=== PATIENT | female | born 1970 | race African-American/Black ===

== ENCOUNTER 2016-08-20 09:00 | Emergency (ER) | payer OTHER ==
[~2016-08-20] VITALS: Ht 172.7 cm; Wt 108.9 kg
[~2016-08-20 09:00] MED LIST: ADVAIR 250-501 EACH INH; ALBUTEROL SULF8.5 GM INH; ALBUTEROL2.5 MG/3 M HHN; ATIVAN1 MG ORAL; ATROVENT15 M1 NASAL; ATROVENT30 ML NASAL; AZITHROMYCIN250 MG ORAL; AZITHROMYCIN250 MG PO; CYCLOBENZAPRINE10 MG ORAL; DULERA 100 MCG/13 GM INH; IBUPROFEN600 MG ORAL; IPRATROPIU0.2 MG/1 M HHN; LEVAQUIN500 MG ORAL; LEVAQUIN500 MG PO; LIPITOR10 MG ORAL; LISINOPRIL20 MG ORAL; MECLIZINE HCL25 MG ORAL; MEDROL DOSEPAK4 MG ORAL; NORCO 5-325 TA1 EACH ORAL; NORCO 5-325 TA1 EACH PO; NORVASC5 MG ORAL; PREDNISONE20 MG ORAL; PREDNISONE20 MG PO; PREDNISONE50 MG ORAL; PROAIR HFA8.5 GM INH; PROTONIX40 MG ORAL; PULMICORT0.5 MG/2 M IH; SINGULAIR10 MG ORAL; SPIRIVA18 MCG INH; TENORMIN25 MG ORAL; TENORMIN50 MG PO; VERAPAMIL HCL80 MG ORAL; VICODIN 5-5001 EACH PO; XANAX0.5 MG PO; XOPENEX0.63 MG/3 HHN; ZESTRIL20 MG PO
[2016-08-20] MEDS ORDERED: DULERA 200 MCG/13 GM IH (09:08)
--- NOTE | 2016-08-20 09:26 | Emergency Room Report ---
History of Present Illness General Chief Complaint: Lower Extremity Injury Source: Patient Present Illness HPI Patient presents with complaints of pain to the left foot Dorsally She states that she had fractured that foot long time ago but that was along the medial aspect of the foot Pain is worse with ambulate in Denies any ankle pain Denies any fevers or chills Denies any redness Pain is 5/10 localized to the mid dorsal foot Allergies: Coded Allergies: No Known Allergies (Verified , 08/28/07) Patient History Past Medical History: see triage record Pertinent Family History: none Last Menstrual Period: none Now: No Reviewed Nursing Documentation: PMH: Agreed, PSxH: Agreed Nursing Documentation-PMH Hx Hypertension: Yes Hx Asthma: Yes Hx COPD: Yes Hx Diabetes: No Hx Cancer: No Hx Gastrointestinal Problems: No Hx Dialysis: No Hx Neurological Problems: No Hx Cerebrovascular Accident: No Hx Seizures: No Hx Vertigo: Yes Review of Systems All Other Systems: negative except mentioned in HPI Physical Exam Vital Signs Date Time Temp Pulse Resp B/P Pulse Ox O2 Delivery O2 Flow Rate FiO2 08/20/16 09:02 98.4 99 18 121/84 96 Room Air Sp02 EP Interpretation: reviewed, normal General Appearance: well appearing, no apparent distress Head: normocephalic, atraumatic Eyes: bilateral eye EOMI, bilateral eye PERRL ENT: normal pharynx Musculoskeletal: other - Mild discomfort palpated the mid dorsal foot, neurovascularly intact, ankle is nontender Neurologic: alert, oriented x3, responsive, motor strength/tone normal Skin: no rash, warm/dry Lymphatic: no adenopathy Medical Decision Making Diagnostic Impression: Primary Impression: Foot pain, left ER Course Patient imaging reveals chronic findings in the dorsal mid aspect of the foot No obvious acute pathology is noted Could potentially given the patient's discomfort as it does correlate clinically as well Patient was given anti-inflammatory will rest and elevate the area and have close outpatient followup Other X-Ray Diagnostic Results Other X-Ray Diagnostic Results : EP Interpretation: Yes Findings: no fractures, no dislocation, no soft tissue swelling, other - Evidence of chronic pathology at the mid third metatarsal Number of Views: 3 - left foot Last Vital Signs Date Time Temp Pulse Resp B/P Pulse Ox O2 Delivery O2 Flow Rate FiO2 08/20/16 09:02 98.4 99 18 121/84 96 Room Air Status: improved Disposition: HOME, SELF-CARE Condition: Stable Scripts Ibuprofen* (MOTRIN*) 600 Mg Tablet 600 MG ORAL Q8H Y for For Pain, #20 TAB 0 Refills Prov: NICHOLAS HANDY D.O. 08/20/16 Referrals: [facility]ERR[facility] (PCP) Additional Instructions: Patient is provided with the discharge instructions notified to follow up with primary doctor in the next 2-3 days otherwise return to the er with any worsening symptoms. NICHOLAS HANDY D.O. Aug 20, 2016 09:26
[2016-08-20] MEDS ORDERED: IBUPROFEN600 MG ORAL (10:24)
--- NOTE | 2016-08-20 10:53 | Diagnostic Imaging Report ---
Indication: PAIN Technique: 3 views left foot Comparison: none Findings: Dense thick periosteal thickening is seen along the proximal shaft of the third metatarsal, consistent with old healed fracture deformity. There is slightly more subtle periosteal thickening in underlying medullary thickening of the fifth proximal metatarsal. There is also very subtle periosteal thickening of the distal shaft of the fourth metatarsal. No definite acute fracture there is suggestion of degenerative joint space narrowing of the third and fourth distal interphalangeal joints, second third and fourth proximal interphalangeal joints. There is minimal hallux valgus. Soft tissue calcifications are seen in the harris region Impression: Periosteal thickening of the third metatarsal shaft is suggestive of old healed fracture deformity. Periosteal thickening of the fourth and fifth metatarsal probably reflects old healed fracture deformities as well, but the possibility of late subacute or healed stress fractures should be considered. Correlate with clinical findings, consider MRI for further evaluation as clinically indicated No definite acute abnormality otherwise
[2016-08-20 11:13] VITALS: BP 118/85
== END 2016-08-20 11:16 | disposition home or self-care (01) ==
LOC: EMR 09:19
DX: M79.672 Pain in left foot (principal); I10 Essential (primary) hypertension; J44.9 Chronic obstructive pulmonary disease, unspecified; R42 Dizziness and giddiness
CPT/HCPCS: 99283

== ENCOUNTER 2016-09-23 11:52 | Emergency (ER) | payer MEDICAID, OTHER ==
[~2016-09-23] VITALS: Ht 175.3 cm; Wt 106.6 kg
[~2016-09-23 11:52] MED LIST changes: +DULERA 200 MCG/13 GM IH
[2016-09-23 12:15] VITALS: BP 137/83
--- NOTE | 2016-09-23 12:35 | Emergency Room Report ---
History of Present Illness General Chief Complaint: General Complaint Source: Patient, Medical Record Present Illness HPI 45 YO female presents to the ED c/o muscle spasms of the bilateral feet and hands x2 weeks. She takes hydrochlorothiazide in addition to Lipitor. Denies N/V/D, or recent illness, denies recent travel, frequency with urination , hx of parathyroid dysfunction. Denies numbness tingling or loss of sensation or gross motor movements of the extremities, incontinence of bowel or bladder. Denies CP, Palpitations, LOC, AMS , dizziness, Changes in Vision, Sensation, paresthesias, or a sudden severe headache. Allergies: Coded Allergies: No Known Allergies (Verified , 08/28/07) Patient History Past Medical History: see triage record Past Surgical History: none Pertinent Family History: none Last Menstrual Period: 5 years ago Now: No Immunizations: UTD Reviewed Nursing Documentation: PMH: Agreed, PSxH: Agreed Nursing Documentation-PMH Past Medical History: No History, Except For Hx Hypertension: Yes Hx Asthma: Yes Hx COPD: Yes Hx Diabetes: No Hx Cancer: No Hx Gastrointestinal Problems: No Hx Dialysis: No Hx Neurological Problems: No Hx Cerebrovascular Accident: No Hx Seizures: No Hx Vertigo: Yes Review of Systems All Other Systems: negative except mentioned in HPI Physical Exam Vital Signs Date Time Temp Pulse Resp B/P Pulse Ox O2 Delivery O2 Flow Rate FiO2 09/23/16 12:15 98.1 108 18 137/83 95 Room Air Sp02 EP Interpretation: reviewed, normal General Appearance: no apparent distress, alert, GCS 15, non-toxic Head: normocephalic, atraumatic Eyes: bilateral eye PERRL, bilateral eye normal inspection ENT: hearing grossly normal, normal pharynx, no angioedema, normal voice Neck: full range of motion, supple/symm/no masses Respiratory: chest non-tender, lungs clear, normal breath sounds, speaking full sentences Cardiovascular #1: regular rate, rhythm, no edema Gastrointestinal: normal bowel sounds, non tender, soft, no guarding, no rebound Rectal: deferred Genitourinary: normal inspection, no CVA tenderness Musculoskeletal: back normal, gait/station normal, normal range of motion, non- tender, no calf tenderness Neurologic: alert, oriented x3, responsive, motor strength/tone normal, sensory intact, speech normal Psychiatric: judgement/insight normal, memory normal, mood/affect normal, no suicidal/homicidal ideation Skin: normal color, no rash, warm/dry, well hydrated Lymphatic: no adenopathy Medical Decision Making PA Attestation Dr. bueno is my supervising Physician whom patient management has been discussed with. Diagnostic Impression: Primary Impression: Cramps, muscle, general ER Course Pt. presents to the ED c/o muscle spasms of the bilateral feet and hands x2 weeks. She takes hydrochlorothiazide in addition to Lipitor. Ddx considered but are not limited to rhabdo, electrolyte imbalance, muscle cramps Vital signs: are WNL, pt. is afebrile H&PE are most consistent with muscle cramps ORDERS: CBC: mild leukocytosis, not indicative of infection clinically. -BMP: hypochloremia - Pt given 500cc NS -Total CK: mild elevation at 222 -UA: unremarkable no evidence to suggest rhabdomyolysis, there is minimal occult blood but also presence of RBC's and glucose. ED INTERVENTIONS: -500cc NS -350mg Soma PO --D/w pt that she is stable for further evaluation of her symptoms as an outpatient with her PCP. DISCHARGE: At this time pt. is stable for d/c to home. Will provide printed patient care instructions, and any necessary prescriptions. Care plan and follow up instructions have been discussed with the patient prior to discharge. Labs Test 09/23/16 12:54 White Blood Count 12.4 K/UL (4.8-10.8) Red Blood Count 5.11 M/UL (4.20-5.40) Hemoglobin 14.7 G/DL (12.0-16.0) Hematocrit 45.5 % (37.0-47.0) Mean Corpuscular Volume 89 FL (80-99) Mean Corpuscular Hemoglobin 28.8 PG (27.0-31.0) Mean Corpuscular Hemoglobin Concent 32.3 G/DL (32.0-36.0) Red Cell Distribution Width 11.6 % (11.6-14.8) Platelet Count 244 K/UL (150-450) Mean Platelet Volume 8.7 FL (6.5-10.1) Neutrophils (%) (Auto) % (45.0-75.0) Lymphocytes (%) (Auto) % (20.0-45.0) Monocytes (%) (Auto) % (1.0-10.0) Eosinophils (%) (Auto) % (0.0-3.0) Basophils (%) (Auto) % (0.0-2.0) Differential Total Cells Counted 100 Neutrophils % (Manual) 77 % (45-75) Lymphocytes % (Manual) 18 % (20-45) Monocytes % (Manual) 5 % (1-10) Eosinophils % (Manual) 0 % (0-3) Basophils % (Manual) 0 % (0-2) Band Neutrophils 0 % (0-8) Platelet Estimate Adequate Platelet Morphology Normal Red Blood Cell Morphology Normal Urine Color Yellow Urine Appearance Slightly cloudy Urine pH 5.0 (4.5-8.0) Urine Specific Orwell 1.020 (1.005-1.035) Urine Protein Negative (NEGATIVE) Urine Glucose (UA) 3+ (NEGATIVE) Urine Ketones Negative (NEGATIVE) Urine Occult Blood 1+ (NEGATIVE) Urine Nitrite Negative (NEGATIVE) Urine Bilirubin Negative (NEGATIVE) Urine Urobilinogen Normal MG/DL (0.0-1.0) Urine Leukocyte Esterase Negative (NEGATIVE) Urine RBC 2-4 /HPF (0 - 2) Urine WBC 0-2 /HPF (0 - 2) Urine Squamous Epithelial Cells Few /LPF (NONE/OCC) Urine Bacteria Few /HPF (NONE) Sodium Level 136 mEQ/L (135-145) Potassium Level 4.1 mEQ/L (3.4-4.9) Chloride Level 92 mEQ/L (98-107) Carbon Dioxide Level 25 mEQ/L (20-30) Anion Gap 19 (5-15) Blood Urea Nitrogen 14 mg/dL (7-23) Creatinine 1.0 mg/dL (0.5-0.9) Estimat Glomerular Filtration Rate > 60 mL/min (>60) Glucose Level 274 mg/dL (74-106) Calcium Level 10.2 mg/dL (8.6-10.2) Total Bilirubin 1.1 mg/dL (0.0-1.2) Direct Bilirubin 0.2 mg/dL (0.1-0.3) Aspartate Amino Transf (AST/SGOT) 18 U/L (5-40) Alanine Aminotransferase (ALT/SGPT) 24 U/L (3-33) Alkaline Phosphatase 96 U/L (35-104) Total Creatine Kinase 222 U/L (26-140) Creatine Kinase MB 2.8 ng/mL (< 3.8) Creatine Kinase MB Relative Index 1.2 Total Protein 7.0 g/dL (6.6-8.7) Albumin 4.8 g/dL (3.5-5.2) Globulin 2.2 g/dL Albumin/Globulin Ratio 2.1 (1.0-2.7) Last Vital Signs Date Time Temp Pulse Resp B/P Pulse Ox O2 Delivery O2 Flow Rate FiO2 09/23/16 12:15 98.1 108 18 137/83 95 Room Air Disposition: HOME, SELF-CARE Condition: Stable Scripts Ibuprofen* (MOTRIN*) 600 Mg Tablet 600 MG ORAL THREE TIMES A DAY, #30 TAB 0 Refills Prov: Barbara Wayne 09/23/16 Cyclobenzaprine Hcl* (FLEXERIL*) 10 Mg Tablet 10 MG ORAL THREE TIMES A DAY, #30 TAB Prov: Barbara Wayne 09/23/16 Patient Instructions: Muscle Cramps and Spasms Additional Instructions: Take medications as directed. Follow up with PCP in 3-5 days Return sooner to ED if new symptoms occur, or current symptoms become worse. Do not drink alcohol, drive, or operate heavy machinery while taking Muscle Relaxer as this may cause increased drowsiness. Barbara Wayne Sep 23, 2016 12:35
[2016-09-23 13:27] LABS: MEAN CORPUSCULAR HEMOGLOBIN 28.8 PG (27.0-31.0); MEAN CORPUSCULAR HGB CONC 32.3 G/DL (32.0-36.0); MEAN CORPUSCULAR VOLUME 89 FL (80-99); MEAN PLATELET VOLUME 8.7 FL (6.5-10.1); PLATELET COUNT 244 K/UL (150-450); RED BLOOD COUNT 5.11 M/UL (4.20-5.40); RED CELL DISTRIBUTION WIDTH 11.6 % (11.6-14.8); WHITE BLOOD COUNT 12.4 K/UL (4.8-10.8)
[2016-09-23 13:46] LABS: KETONES,URINE NEGATIVE (NEGATIVE); PROTEIN,URINE NEGATIVE (NEGATIVE)
[2016-09-23 13:47] LABS: ALANINE AMINOTRANSFERASE 24 U/L (3-33); ALBUMIN/GLOBULIN RATIO 2.1 (1.0-2.7); ANION GAP 19 (5-15); APPEARANCE,URINE SLIGHTLY CLOUDY; ASPARTATE AMINO TRANSFERASE 18 U/L (5-40); CALCIUM 10.2 mg/dL (8.6-10.2); CARBON DIOXIDE 25 mEQ/L (20-30); CHLORIDE 92 mEQ/L (98-107); GLOMERULAR FILTRATION RATE > 60 mL/min (>60); HEMOLYSIS 15; LEUKOCYTE ESTERASE ,URINE NEGATIVE (NEGATIVE); NITRITE,URINE NEGATIVE (NEGATIVE); POTASSIUM 4.1 mEQ/L (3.4-4.9); SODIUM 136 mEQ/L (135-145); SQUAMOUS EPITHELIAL CELL,UR FEW /LPF (NONE/OCC); UROBILINOGEN,URINE NORMAL MG/DL (0.0-1.0)
[2016-09-23 13:48] LABS: BACTERIA,URINE FEW /HPF; WBC,URINE 0-2 /HPF (0 - 2)
[2016-09-23 13:57] LABS: CKMB 2.8 ng/mL (< 3.8)
[2016-09-23 14:02] LABS: BAND NEUTROPHILS % (MANUAL) 0 % (0-8); BASOPHILS % (MANUAL) 0 % (0-2); EOSINOPHILS % (MANUAL) 0 % (0-3); LYMPHOCYTES % (MANUAL) 18 % (20-45); NEUTROPHILS % (MANUAL) 77 % (45-75); PLATELET ESTIMATE ADEQUATE; TOTAL CELLS COUNTED 100
[2016-09-23 14:03] LABS: PLATELET MORPHOLOGY NORMAL
[2016-09-23 14:07] LABS: BILIRUBIN,DIRECT 0.2 mg/dL (0.1-0.3)
[2016-09-23] MEDS ORDERED: CYCLOBENZAPRINE10 MG ORAL (14:46)
[2016-09-23] MEDS ORDERED: IBUPROFEN600 MG ORAL (14:46)
[2016-09-23 15:16] VITALS: BP 128/89
== END 2016-09-23 15:19 | disposition home or self-care (01) ==
LOC: EMR 12:30
DX: R25.2 Cramp and spasm (principal); I10 Essential (primary) hypertension; J44.9 Chronic obstructive pulmonary disease, unspecified; J45.909 Unspecified asthma, uncomplicated
CPT/HCPCS: 36415; 80053; 81003; 82248; 82550; 82553; 85007; 85025; 96374; 99284; J7040

== ENCOUNTER 2016-10-04 11:40 | Emergency (ER) | payer MEDICAID ==
[~2016-10-04] VITALS: Ht 175.3 cm; Wt 99.8 kg
[2016-10-04 12:00] VITALS: BP 134/93
[2016-10-04] MEDS ORDERED: PredniSONE 20mg tab ORAL ONE (12:30)
[2016-10-04] MEDS: Ipratropium 0.02% Inh Soln 2.5ml UD HHN SCH ×2 (12:42→12:56)
[2016-10-04] MEDS: Albuterol ud Inhalation HHN SCH ×2 (12:42→12:56)
--- NOTE | 2016-10-04 13:13 | Emergency Room Report ---
History of Present Illness General Chief Complaint: Upper Respiratory Illness Source: Patient Present Illness HPI 45 YOF with known asthma, previous smoker, presents with acute SOB and mucous congestion for 2 days. Denies chest pain, fever/chills, cough. Patient is on dulera, singulair. Took 60mg prednisone this morning. Had PFTs yesterday but doesnt know results. Had CXR yesterday too, also doesnt know results. Uses neb albuterol 2x/day for long time. Allergies: Coded Allergies: No Known Allergies (Verified , 08/28/07) Patient History Past Medical History: asthma Past Surgical History: none Pertinent Family History: none Social History: Denies: alcohol use, drug use, smoking Now: No Immunizations: UTD Reviewed Nursing Documentation: PMH: Agreed, PSxH: Agreed Nursing Documentation-PMH Hx Hypertension: Yes Hx Asthma: Yes Hx COPD: Yes Hx Diabetes: No Hx Cancer: No Hx Gastrointestinal Problems: No Hx Dialysis: No Hx Neurological Problems: No Hx Cerebrovascular Accident: No Hx Seizures: No Hx Vertigo: Yes Review of Systems All Other Systems: negative except mentioned in HPI Physical Exam Vital Signs Date Time Temp Pulse Resp B/P Pulse Ox O2 Delivery O2 Flow Rate FiO2 10/04/16 11:42 98.1 109 20 152/82 93 Room Air 10/04/16 12:42 28 10/04/16 12:42 2.0 Sp02 EP Interpretation: reviewed, abnormal General Appearance: normal inspection, well appearing, no apparent distress, alert, GCS 15, non-toxic Head: normocephalic, atraumatic Eyes: bilateral eye EOMI, bilateral eye PERRL ENT: normal ENT inspection, hearing grossly normal, normal voice Neck: normal inspection, full range of motion, supple, no bony tend Respiratory: normal inspection, lungs clear, normal breath sounds, no respiratory distress, no retraction, no accessory muscle use, wheezing, other - Ins/exp wheezing throughout chest Cardiovascular #1: regular rate, rhythm, no edema Gastrointestinal: normal inspection, normal bowel sounds, non tender, soft, no guarding, no hernia Genitourinary: no CVA tenderness Musculoskeletal: normal inspection, back normal, normal range of motion, Paola' s Sign negative Neurologic: normal inspection, alert, oriented x3, responsive, nps III-XII nml as tested, speech normal Psychiatric: normal inspection Skin: normal inspection Lymphatic: normal inspection Medical Decision Making Diagnostic Impression: Primary Impression: Asthma attack ER Course 45 YOF with asthma exacerbation. VS notable for hypoxia 93%. Duonebs given Patient already had prednisone at home earlier DDx asthma exacerbation, viral URI Low suspicion for PE. PERC negative. No history of exogenous estrogen, calf pain/swelling or other risk factors. Pulse O2 was 93% on triage but improved to 97-98% after tx. PLAN CXR IV Mg Reassess Chest X-Ray Diagnostic Results EP Interpretation: Yes Findings: no consolidation, no effusion, no pneumothorax, no acute cardiopulmonary disease Number of Views: 1 Reevaluation Time: 14:30 Last Vital Signs Date Time Temp Pulse Resp B/P Pulse Ox O2 Delivery O2 Flow Rate FiO2 10/04/16 12:42 91 12 100 Nasal Cannula 2.0 28 10/04/16 11:42 98.1 152/82 Status: improved Reevaluation Impression Patient feels better after duonebs CXR negative for PNA No leuks on Labs Patient feels SOB when she ambulates In shared discussion, plan for reassessment, ambulating patient and check O2 sat after IV Mg done Endorsed to Dr Goyal at 230pm for above plan and to determine ultimate disposition Disposition: ADMITTED INPATIENT Scripts Fluticasone Propionate (Flonase Allergy Relief) 9.9 Ml [place].susp 9.9 ML NS BID for 7 Days, #1 UNIT Prov: JUAQUIN DUDLEY M.D. 10/04/16 Prednisone* (PREDNISONE*) 20 Mg Tablet 20 MG ORAL BID for 5 Days, #10 TAB Prov: JUAQUIN DUDLEY M.D. 10/04/16 Referrals: [facility] (PCP) JUAQUIN DUDLEY M.D. Oct 04, 2016 13:13
[2016-10-04 13:30] LABS: MEAN CORPUSCULAR HEMOGLOBIN 29.1 PG (27.0-31.0); MEAN CORPUSCULAR HGB CONC 32.9 G/DL (32.0-36.0); MEAN CORPUSCULAR VOLUME 88 FL (80-99); MEAN PLATELET VOLUME 8.4 FL (6.5-10.1); PLATELET COUNT 239 K/UL (150-450); RED BLOOD COUNT 5.12 M/UL (4.20-5.40); RED CELL DISTRIBUTION WIDTH 11.6 % (11.6-14.8); WHITE BLOOD COUNT 8.8 K/UL (4.8-10.8)
[2016-10-04 13:39] LABS: ALANINE AMINOTRANSFERASE 29 U/L (3-33); ANION GAP 18 (5-15); ASPARTATE AMINO TRANSFERASE 28 U/L (5-40); CALCIUM 10.2 mg/dL (8.6-10.2); CARBON DIOXIDE 26 mEQ/L (20-30); CHLORIDE 92 mEQ/L (98-107); CREATININE 0.9 mg/dL (0.5-0.9); GLOMERULAR FILTRATION RATE > 60 mL/min (>60); HEMOLYSIS 57; POTASSIUM 4.3 mEQ/L (3.4-4.9); SODIUM 136 mEQ/L (135-145)
[2016-10-04] MEDS ORDERED: PREDNISONE20 MG ORAL (13:42)
[2016-10-04] MEDS ORDERED: FLONASE ALLERG9.9 ML NS (13:42)
[2016-10-04 13:55] LABS: BILIRUBIN,DIRECT 0.2 mg/dL (0.1-0.3)
--- NOTE | 2016-10-04 14:07 | Diagnostic Imaging Report ---
Indication: SOB Technique: One view of the chest Comparison: 07/24/2016 Findings: Lungs and pleural spaces are clear. Heart size is normal, appears smaller than on the prior study, possibly due to better inspiration on the current exam. No significant change Impression: No acute process
[2016-10-04 14:09] VITALS: BP 128/87
[2016-10-04 14:11] LABS: BAND NEUTROPHILS % (MANUAL) 0 % (0-8); BASOPHILS % (MANUAL) 0 % (0-2); EOSINOPHILS % (MANUAL) 0 % (0-3); LYMPHOCYTES % (MANUAL) 6 % (20-45); NEUTROPHILS % (MANUAL) 92 % (45-75); PLATELET ESTIMATE ADEQUATE; PLATELET MORPHOLOGY NORMAL; TOTAL CELLS COUNTED 100
[2016-10-04 16:01] VITALS: BP 124/83
--- NOTE | 2016-10-06 15:17 | Cardiology Report ---
APPROVED REPORT EKG Measurement Heart [id number] Sinus tachycardia Possible Left atrial enlargement Nonspecific T wave abnormality Abnormal ECG
== END 2016-10-04 16:03 | disposition home or self-care (01) ==
LOC: EMR 12:15
DX: J45.901 Unspecified asthma with (acute) exacerbation (principal); I10 Essential (primary) hypertension; J44.9 Chronic obstructive pulmonary disease, unspecified
CPT/HCPCS: 36415; 71010; 80053; 82248; 85007; 85025; 93005; 94640; 94664; 96374

== ENCOUNTER 2016-10-08 16:02 | Emergency (ER) | payer MEDICAID, OTHER ==
[~2016-10-08] VITALS: Ht 172.7 cm; Wt 108.9 kg
[~2016-10-08 16:02] MED LIST changes: +FLONASE ALLERG9.9 ML NS
[2016-10-08 16:14] VITALS: BP 168/89
[2016-10-08] MEDS ORDERED: Albuterol ud Inhalation HHN ONE (16:30)
[2016-10-08] MEDS ORDERED: DuoNeb 0.5-3(2.5)mg/3ml neb HHN ONE (16:45)
[2016-10-08 17:12] LABS: MEAN CORPUSCULAR HEMOGLOBIN 28.6 PG (27.0-31.0); MEAN CORPUSCULAR HGB CONC 32.4 G/DL (32.0-36.0); MEAN CORPUSCULAR VOLUME 88 FL (80-99); MEAN PLATELET VOLUME 9.6 FL (6.5-10.1); PLATELET COUNT 247 K/UL (150-450); RED BLOOD COUNT 5.02 M/UL (4.20-5.40); RED CELL DISTRIBUTION WIDTH 11.8 % (11.6-14.8)
[2016-10-08 17:13] LABS: BASOPHILS % (AUTO) 0.5 % (0.0-2.0); EOSINOPHILS % (AUTO) 0.3 % (0.0-3.0); LYMPHOCYTES % (AUTO) 16.1 % (20.0-45.0); MONOCYTES % (AUTO) 3.2 % (1.0-10.0)
[2016-10-08 17:31] LABS: ALANINE AMINOTRANSFERASE 24 U/L (3-33); ANION GAP 18 (5-15); ASPARTATE AMINO TRANSFERASE 19 U/L (5-40); CARBON DIOXIDE 27 mEQ/L (20-30); CHLORIDE 95 mEQ/L (98-107); GLOMERULAR FILTRATION RATE > 60 mL/min (>60); HEMOLYSIS 21; POTASSIUM 3.7 mEQ/L (3.4-4.9); SODIUM 140 mEQ/L (135-145); TOTAL PROTEIN 6.8 g/dL (6.6-8.7)
[2016-10-08] MEDS: DuoNeb 0.5-3(2.5)mg/3ml neb HHN SCH ×5 (17:45→18:45)
[2016-10-08 18:15] VITALS: BP 156/84
[2016-10-08 19:36] LABS: TROPONIN I < 0.30 ng/mL (<=0.30)
[2016-10-08 19:45] LABS: CKMB 4.6 ng/mL (< 3.8)
--- NOTE | 2016-10-08 20:30 | Emergency Room Report ---
History of Present Illness General Chief Complaint: Asthma Source: Patient, Medical Record (MER MAJANO P.A.) Present Illness HPI 45-year-old female complains of dyspnea on exertion for 2 weeks. Patient states that she was here 3 days ago for the same problem and left AMA with provider wanted to admit the patient for dyspnea on exertion. The patient was given prednisone in addition to spiriva, albuterol, singular and dulera. Patient states that her discomfort is moderate to severe and worse with walking and better at rest. Patient states that she has a history of recurrent admissions to the hospital with previous intubation for her asthma exacerbations. Patient is here again for reevaluation of symptoms and consideration for admission. Denies any current n/v/f/c/d, abd pain, back pain, neck pain, photophobia, phonophobia, CP or headache. (MER MAJANO P.A.) Allergies: Coded Allergies: No Known Allergies (Verified , 08/28/07) Patient History Past Medical History: see triage record, old chart reviewed, asthma Past Surgical History: hysterectomy Pertinent Family History: none Last Menstrual Period: Full hysterectomy Now: No Immunizations: UTD Reviewed Nursing Documentation: PMH: Agreed, PSxH: Agreed (MER MAJANO P.A.) Nursing Documentation-PMH Hx Hypertension: Yes Hx Asthma: Yes Hx COPD: Yes Hx Diabetes: No Hx Cancer: No Hx Gastrointestinal Problems: No Hx Dialysis: No Hx Neurological Problems: No Hx Cerebrovascular Accident: No Hx Seizures: No Hx Vertigo: Yes (MER MAJANO P.A.) Review of Systems All Other Systems: negative except mentioned in HPI (MER MAAJNO P.A.) Physical Exam Vital Signs Date Time Temp Pulse Resp B/P Pulse Ox O2 Delivery O2 Flow Rate FiO2 10/08/16 16:06 98.1 110 26 170/91 93 Room Air 10/08/16 16:27 21 Sp02 EP Interpretation: reviewed, normal General Appearance: no apparent distress, alert, GCS 15, non-toxic Head: normocephalic, atraumatic Eyes: bilateral eye PERRL, bilateral eye normal inspection ENT: hearing grossly normal, normal pharynx, no angioedema, normal voice, TMs + canals normal, uvula midline Neck: full range of motion, supple/symm/no masses Respiratory: chest non-tender, lungs clear, normal breath sounds, no rhonchi, speaking full sentences, other - breathing mild to moderately labored Cardiovascular #1: regular rate, rhythm, no edema Gastrointestinal: non tender, soft Musculoskeletal: back normal, gait/station normal, normal range of motion, non- tender Neurologic: alert, oriented x3, responsive, motor strength/tone normal, sensory intact, speech normal Psychiatric: judgement/insight normal, memory normal, mood/affect normal, no suicidal/homicidal ideation Skin: normal color, no rash, warm/dry, well hydrated Lymphatic: no adenopathy (MER MAJANO P.AWilton) Medical Decision Making PA Attestation Dr. Goyal is my supervising physician with whom patient management has been discussed with. (MER MAJANO P.AWilton) Diagnostic Impression: Primary Impression: asthma exacerbation Additional Impression: ESCOBAR (dyspnea on exertion) ER Course Pt. presents to the ED c/o ESCOABR Ddx considered but are not limited to PE, PR, Asthma, CHF, pneumonia Vital signs: are WNL, pt. is afebrile H&PE are most consistent with Asthma exacerbation ORDERS: CBC, CMP, BNP, UA, D-Dimer ED INTERVENTIONS: Mag Sulfate, Albuterol HHN, Duoneb HHN DISCHARGE: Patient admitted to [facility]. Report was given to inpatient physician assuming care of patient. Laboratory Tests Test 10/08/16 16:52 10/08/16 18:00 White Blood Count 13.0 K/UL (4.8-10.8) H Red Blood Count 5.02 M/UL (4.20-5.40) Hemoglobin 14.4 G/DL (12.0-16.0) Hematocrit 44.4 % (37.0-47.0) Mean Corpuscular Volume 88 FL (80-99) Mean Corpuscular Hemoglobin 28.6 PG (27.0-31.0) Mean Corpuscular Hemoglobin Concent 32.4 G/DL (32.0-36.0) Red Cell Distribution Width 11.8 % (11.6-14.8) Platelet Count 247 K/UL (150-450) Mean Platelet Volume 9.6 FL (6.5-10.1) Neutrophils (%) (Auto) 80.0 % (45.0-75.0) H Lymphocytes (%) (Auto) 16.1 % (20.0-45.0) L Monocytes (%) (Auto) 3.2 % (1.0-10.0) Eosinophils (%) (Auto) 0.3 % (0.0-3.0) Basophils (%) (Auto) 0.5 % (0.0-2.0) Sodium Level 140 mEQ/L (135-145) Potassium Level 3.7 mEQ/L (3.4-4.9) Chloride Level 95 mEQ/L (98-107) L Carbon Dioxide Level 27 mEQ/L (20-30) Anion Gap 18 (5-15) H Blood Urea Nitrogen 15 mg/dL (7-23) Creatinine 1.0 mg/dL (0.5-0.9) H Estimate Glomerular Filtration Rate > 60 mL/min (>60) Glucose Level 239 mg/dL (74-106) H Calcium Level 10.0 mg/dL (8.6-10.2) Total Bilirubin 1.0 mg/dL (0.0-1.2) Aspartate Amino Transferase (AST) 19 U/L (5-40) Alanine Aminotransferase (ALT) 24 U/L (3-33) Alkaline Phosphatase 89 U/L (35-104) Total Protein 6.8 g/dL (6.6-8.7) Albumin 4.6 g/dL (3.5-5.2) Globulin 2.2 g/dL Albumin/Globulin Ratio 2.0 (1.0-2.7) D-Dimer 401 ng/mL (<500) Creatine Kinase MB 4.6 ng/mL (< 3.8) H Troponin I < 0.30 ng/mL (<=0.30) Pro-B-Type Natriuretic Peptide 38 pg/mL (0-125) (MER MAJANO P.A.) ER Course The patient was endorsed to me by the physician treasury assistant. The patient was previously slated for admission . She had been given breathing treatments and felt somewhat better. Patient was given prescription for Bactrim and she had symptoms concerning for urinary tract infectionThe patient was advised risk benefits alternatives of leaving AGAINST MEDICAL ADVICE and she indicated understanding and all questions are answered patient still continued want to leave and signed AGAINST MEDICAL ADVICE. Despite risks including but not limited to disability and worsening of current lifestyle. (Rey Goyal) Last Vital Signs Date Time Temp Pulse Resp B/P Pulse Ox O2 Delivery O2 Flow Rate FiO2 10/08/16 18:15 98.1 98 22 156/84 99 Room Air 21 (MER MAJANO) Status: improved (Rey Goyal) Disposition: AGAINST MEDICAL ADVICE Condition: Stable Scripts Trimethoprim/Sulfamethoxazole 160/800* (BACTRIM DS TABLET*) 1 Each Tablet 1 TAB ORAL Q12H, #14 TAB 0 Refills Prov: Rey Goyal 10/08/16 [facility]) MER MAJANO Oct 08, 2016 20:30 Rey Goyal Oct 11, 2016 13:25
[2016-10-08] MEDS ORDERED: Morphine Sulfate 2mg/ml Inj IVP PRN (21:00)
[2016-10-08] MEDS ORDERED: Theophylline ER 100mg ORAL SCH (21:00)
[2016-10-08] MEDS ORDERED: DuoNeb 0.5-3(2.5)mg/3ml neb HHN PRN (21:00)
[2016-10-08] MEDS ORDERED: NovoLOG Insulin Flexpen SUBQ SCH (21:00)
[2016-10-08] MEDS ORDERED: Ketorolac 30mg Inj IV PRN (21:00)
[2016-10-08] MEDS ORDERED: LORazepam Inj 2mg/ml 1ml IV PRN (21:00)
[2016-10-08] MEDS ORDERED: Nitroglycerin Subl 0.4mg tab (Bottle Of 25) SL PRN (21:00)
[2016-10-08] MEDS ORDERED: Promethazine/Codeine 5ml UD ORAL PRN (21:00)
[2016-10-08] MEDS ORDERED: Heparin 5000 units/ml inj SUBQ SCH (21:00)
[2016-10-08] MEDS ORDERED: BACTRIM DS TAB1 EAC1 ORAL (21:19)
[2016-10-08 21:24] VITALS: BP 151/86
[2016-10-08 21:25] VITALS: BP 151/86
[2016-10-08] MEDS ORDERED: Piperacillin/Tazobactam 2.25 GM in D5W 55 ML IV SCH (22:00)
[2016-10-09] MEDS ORDERED: Solu-MEDROL 125mg Inj IV SCH
[2016-10-09] MEDS ORDERED: Montelukast 10mg tablet ORAL SCH (09:00)
[2016-10-09] MEDS ORDERED: Verapamil 80mg tab ORAL SCH (09:00)
--- NOTE | 2016-10-09 10:01 | Cardiology Report ---
APPROVED REPORT EKG Measurement Heart [id number] Sinus tachycardia Possible Left atrial enlargement Left ventricular hypertrophy Nonspecific T wave abnormality Abnormal ECG
== END 2016-10-08 21:28 | disposition home or self-care (01) ==
LOC: EMR 16:41
DX: J45.901 Unspecified asthma with (acute) exacerbation (principal); I10 Essential (primary) hypertension; J44.9 Chronic obstructive pulmonary disease, unspecified
CPT/HCPCS: 36415; 80053; 82553; 83880; 84484; 85025; 85379; 93005; 94640; 94664; 96360; J7620

== ENCOUNTER 2016-10-15 14:22 | Inpatient (IN) | payer OTHER ==
[~2016-10-15] VITALS: Ht 175.3 cm; Wt 104.3 kg
[~2016-10-15 14:22] MED LIST changes: +BACTRIM DS TAB1 EAC1 ORAL
[2016-10-15 14:30] VITALS: BP 134/98
[2016-10-15] MEDS ORDERED: Ipratropium 0.02% Inh Soln 2.5ml UD ONE (14:34)
[2016-10-15] MEDS ORDERED: Albuterol ud Inhalation ONE (14:34)
[2016-10-15] MEDS ORDERED: Solu-MEDROL 125mg Inj IVP ONE (14:45)
[2016-10-15] MEDS ORDERED: Terbutaline 1mg/ml Inj SUBQ ONE (14:45)
[2016-10-15] MEDS: Ipratropium 0.02% Inh Soln 2.5ml UD HHN SCH ×4 (14:48→17:11)
[2016-10-15] MEDS: Albuterol ud Inhalation HHN SCH ×3 (14:48→15:15)
--- NOTE | 2016-10-15 14:48 | Emergency Room Report ---
History of Present Illness General Chief Complaint: Asthma Source: Patient, Medical Record Present Illness HPI 45 YO F with known asthma, non-smoker and 2 visits to ED Oct 04 and recently - signed out AMA on because "no one could take my car." Taking " prednisone taper of 40mg" last 2 days from PMD. On multiple daily meds plus albuterol without improvement in SOB, chest tightnes. Deneis fever/chills. Denies chest pain, abd pain, headache, urinary complaints. Allergies: Coded Allergies: No Known Allergies (Verified , 08/28/07) Patient History Past Medical History: asthma Past Surgical History: none Pertinent Family History: none Social History: Denies: alcohol use, drug use, smoking Now: No Immunizations: UTD Reviewed Nursing Documentation: PMH: Agreed, PSxH: Agreed Nursing Documentation-PMH Past Medical History: No History, Except For Hx Hypertension: Yes Hx Asthma: Yes Hx COPD: Yes Hx Diabetes: No Hx Cancer: No Hx Gastrointestinal Problems: No Hx Dialysis: No Hx Neurological Problems: No Hx Cerebrovascular Accident: No Hx Seizures: No Hx Vertigo: Yes Review of Systems All Other Systems: negative except mentioned in HPI Physical Exam Vital Signs Date Time Temp Pulse Resp B/P Pulse Ox O2 Delivery O2 Flow Rate FiO2 10/15/16 14:29 97.3 124 28 134/98 96 Room Air Sp02 EP Interpretation: reviewed, abnormal General Appearance: normal inspection, well appearing, alert, GCS 15, non-toxic , moderate distress, obese Head: normocephalic, atraumatic Eyes: bilateral eye EOMI, bilateral eye PERRL ENT: normal ENT inspection, hearing grossly normal, normal voice Neck: normal inspection, full range of motion, supple, no bony tend Respiratory: normal inspection, accessory muscle use, wheezing Cardiovascular #1: regular rate, rhythm, no edema Gastrointestinal: normal inspection, normal bowel sounds, non tender, soft, no guarding, no hernia Genitourinary: no CVA tenderness Musculoskeletal: normal inspection, back normal, normal range of motion, non- tender, no calf tenderness, Paola's Sign negative Neurologic: normal inspection, alert, oriented x3, responsive, referral and information aide III-XII nml as tested, motor strength/tone normal, speech normal Psychiatric: normal inspection, judgement/insight normal, mood/affect normal Skin: normal inspection, normal color, no rash Medical Decision Making Diagnostic Impression: Primary Impression: Asthma Qualified Codes: J45.41 - Moderate persistent asthma with (acute) exacerbation ER Course Labs: Mild lueks 11k. H&H stable. CMP: No acute metabolic abnormality CXR: No PNA on ED review Improved on nebs, meds Never needed bipap, intubation Feels much better Endorsed to Dr Browne for tele admission at 312pm EKG Diagnostic Results Rate: tachycardiac Rhythm: NSR ST Segments: no acute changes ASA given to the pt in ED: No Rhythm Strip Diag. Results EP Interpretation: yes Rate: 105 Rhythm: NSR, no PVC's, no ectopy Chest X-Ray Diagnostic Results EP Interpretation: Yes Findings: no consolidation, no effusion, no pneumothorax Number of Views: 1 Last Vital Signs Date Time Temp Pulse Resp B/P Pulse Ox O2 Delivery O2 Flow Rate FiO2 10/15/16 14:30 124 28 Room Air 10/15/16 14:30 134/98 95 10/15/16 14:29 97.3 Status: improved Disposition: ADMITTED INPATIENT Condition: Serious JUAQUIN DUDLEY M.D. Oct 15, 2016 14:48
[2016-10-15 15:07] LABS: BASOPHILS % (AUTO) 0.6 % (0.0-2.0); LYMPHOCYTES % (AUTO) 10.7 % (20.0-45.0); MEAN CORPUSCULAR HEMOGLOBIN 28.9 PG (27.0-31.0); MEAN CORPUSCULAR HGB CONC 33.2 G/DL (32.0-36.0); MEAN CORPUSCULAR VOLUME 87 FL (80-99); MEAN PLATELET VOLUME 8.7 FL (6.5-10.1); MONOCYTES % (AUTO) 4.9 % (1.0-10.0); NEUTROPHILS % (AUTO) 83.8 % (45.0-75.0); PLATELET COUNT 240 K/UL (150-450); RED BLOOD COUNT 4.97 M/UL (4.20-5.40); RED CELL DISTRIBUTION WIDTH 11.8 % (11.6-14.8); WHITE BLOOD COUNT 11.1 K/UL (4.8-10.8)
[2016-10-15 15:29] LABS: ALANINE AMINOTRANSFERASE 32 U/L (3-33); ALBUMIN/GLOBULIN RATIO 1.9 (1.0-2.7); ANION GAP 16 (5-15); ASPARTATE AMINO TRANSFERASE 33 U/L (5-40); CALCIUM 10.2 mg/dL (8.6-10.2); CARBON DIOXIDE 26 mEQ/L (20-30); CHLORIDE 95 mEQ/L (98-107); CREATININE 0.9 mg/dL (0.5-0.9); GLOMERULAR FILTRATION RATE > 60 mL/min (>60); HEMOLYSIS 19; POTASSIUM 3.7 mEQ/L (3.4-4.9); SODIUM 137 mEQ/L (135-145); TOTAL PROTEIN 7.1 g/dL (6.6-8.7)
[2016-10-15 15:30] VITALS: BP 131/89
[2016-10-15 15:52] LABS: BILIRUBIN,DIRECT 0.3 mg/dL (0.1-0.3)
[2016-10-15 16:56] VITALS: BP 126/84
[2016-10-15] MEDS: Solu-MEDROL 40mg Inj IVP SCH ×2 (17:53→23:59)
[2016-10-15] MEDS: DuoNeb 0.5-3(2.5)mg/3ml neb HHN SCH ×2 (19:25→23:01)
[2016-10-15 20:00] VITALS: BP 128/84
[2016-10-15] MEDS: Heparin 5000 units/ml inj SUBQ SCH (21:20)
[2016-10-15] MEDS ORDERED: Guaifenesin/DM 10ml syrup ORAL PRN (23:30)
[2016-10-16] VITALS: BP 111/59
[2016-10-16] MEDS: DuoNeb 0.5-3(2.5)mg/3ml neb HHN SCH ×6 (02:03→23:01)
[2016-10-16] MEDS: Promethazine/Codeine 5ml UD ORAL PRN ×2 (02:35→11:33)
[2016-10-16 04:00] VITALS: BP 131/72
[2016-10-16] MEDS: Solu-MEDROL 40mg Inj IVP SCH ×4 (05:35→23:55)
[2016-10-16 07:20] LABS: MEAN CORPUSCULAR HEMOGLOBIN 29.4 PG (27.0-31.0); MEAN CORPUSCULAR HGB CONC 33.8 G/DL (32.0-36.0); MEAN CORPUSCULAR VOLUME 87 FL (80-99); MEAN PLATELET VOLUME 8.8 FL (6.5-10.1); PLATELET COUNT 237 K/UL (150-450); RED BLOOD COUNT 4.63 M/UL (4.20-5.40); RED CELL DISTRIBUTION WIDTH 11.4 % (11.6-14.8); WHITE BLOOD COUNT 12.4 K/UL (4.8-10.8)
[2016-10-16 07:21] LABS: ALANINE AMINOTRANSFERASE 29 U/L (3-33); ALBUMIN/GLOBULIN RATIO 2.1 (1.0-2.7); ANION GAP 17 (5-15); ASPARTATE AMINO TRANSFERASE 25 U/L (5-40); CALCIUM 9.6 mg/dL (8.6-10.2); CARBON DIOXIDE 27 mEQ/L (20-30); CHLORIDE 90 mEQ/L (98-107); CREATININE 0.9 mg/dL (0.5-0.9); GLOMERULAR FILTRATION RATE > 60 mL/min (>60); HEMOLYSIS 5; POTASSIUM 3.6 mEQ/L (3.4-4.9); SODIUM 134 mEQ/L (135-145); TOTAL PROTEIN 6.6 g/dL (6.6-8.7)
[2016-10-16 07:33] LABS: BILIRUBIN,DIRECT 0.2 mg/dL (0.1-0.3)
[2016-10-16 08:00] VITALS: BP 138/89
[2016-10-16] MEDS ORDERED: Pantoprazole Inj IVP SCH (09:00)
[2016-10-16] MEDS: Heparin 5000 units/ml inj SUBQ SCH ×2 (09:23→21:00)
[2016-10-16 10:34] LABS: BAND NEUTROPHILS % (MANUAL) 0 % (0-8); BASOPHILS % (MANUAL) 0 % (0-2); EOSINOPHILS % (MANUAL) 0 % (0-3); LYMPHOCYTES % (MANUAL) 9 % (20-45); NEUTROPHILS % (MANUAL) 88 % (45-75); PLATELET ESTIMATE ADEQUATE; PLATELET MORPHOLOGY NORMAL; TOTAL CELLS COUNTED 100
--- NOTE | 2016-10-16 10:42 | Diagnostic Imaging Report ---
Indication: Shortness of breath Technique: Single portable AP view of the chest. Findings: Comparison: 10/04/16 The bones and extra pulmonary soft tissues, cardiomediastinal silhouette, pulmonary vasculature and parenchyma, and pleural surfaces remain unremarkable. IMPRESSION: Negative portable AP chest, unchanged.
[2016-10-16 12:00] VITALS: BP 132/98
--- NOTE | 2016-10-16 12:14 | History and Physical ---
History of Present Illness General Date patient seen: Oct 16, 2016 Reason for Hospitalization: Asthma Present Illness HPI 45 year old female with hx of asthma, non-smoker presented to [facility] with increasing shortness of breath. On albuterol without improvement in SOB, chest tightness. She is alos complaining of dizziness since admission. Allergies: Allergies: Coded Allergies: No Known Allergies (Verified , 08/28/07) Medication History Scheduled Albuterol Sulfate* (Proair Hfa*), 1 PUFF INH Q6H, (Reported) Atorvastatin Calcium* (Lipitor*), 10 MG ORAL BEDTIME Cyclobenzaprine Hcl* (Flexeril*), 10 MG ORAL THREE TIMES A DAY Fluticasone Propionate (Flonase Allergy Relief), 9.9 ML NS BID Fluticasone/Salmeterol (Advair 250-50 Diskus), 2 PUFF INH EVERY 12 HOURS, ( Reported) Ibuprofen* (Motrin*), 600 MG ORAL THREE TIMES A DAY Ipratropium [place] (Atrovent), 1 SPRAY NASAL THREE TIMES A DAY, (Reported) Levofloxacin* (Levaquin*), 500 MG ORAL DAILY Mometasone/Formoterol (Dulera 200 Mcg/5 Mcg Inhaler), 13 GM IH BID, (Reported) Montelukast Sodium* (Singulair*), 10 MG ORAL DAILY, (Reported) Prednisone* (Prednisone*), 20 MG ORAL BID Tiotropium [place]* (Spiriva*), 1 PUFF INH DAILY, (Reported) Trimethoprim/Sulfamethoxazole 160/800* (Bactrim Ds Tablet*), 1 TAB ORAL Q12H Verapamil Hcl* (Calan*), 80 MG ORAL DAILY, (Reported) Scheduled PRN Ibuprofen* (Motrin*), 600 MG ORAL Q8H PRN for For Pain Miscellaneous Medications Budesonide (Pulmicort), Unknown Dose IH, (Reported) Patient History Healthcare decision maker Resuscitation status Full Code Advanced Directive on File Past Medical/Surgical History Past Medical/Surgical History: (1) Asthma Review of Systems Respiratory: Reports: shortness of breath, wheezing All Other Systems: negative except mentioned in HPI Physical Exam Lines, tubes and drains: peripheral, PICC HEENT: normocephalic Neck: non-tender, normal alignment Respiratory/Chest: rhonchi - left, rhonchi - right, inspiratory wheezing Cardiovascular/Chest: normal peripheral pulses, normal rate Abdomen: normal bowel sounds, non tender Genitourinary/Rectal: normal genital exam, normal rectal exam Extremities: normal range of motion, non-tender Last 24 Hour Vital Signs Date Time Temp Pulse Resp B/P Pulse Ox O2 Delivery O2 Flow Rate FiO2 10/16/16 10:59 95 18 99 Room Air 10/16/16 10:55 21 10/16/16 10:55 83 20 95 Room Air 21 10/16/16 08:00 98.2 97 21 138/89 98 Room Air 10/16/16 06:35 88 18 98 Room Air 10/16/16 06:30 87 20 94 Room Air 21 10/16/16 06:30 21 10/16/16 04:00 98.1 90 22 131/72 96 Room Air 10/16/16 04:00 93 10/16/16 02:11 94 20 98 Room Air 10/16/16 02:02 21 10/16/16 02:02 93 20 94 Room Air 21 10/16/16 00:00 98 10/16/16 00:00 98.1 93 20 111/59 97 Room Air 10/15/16 23:09 89 18 98 Room Air 10/15/16 23:01 21 10/15/16 23:01 88 18 95 Room Air 21 10/15/16 20:00 97.9 99 19 128/84 97 Room Air 10/15/16 20:00 99 10/15/16 19:33 98 20 98 Room Air 10/15/16 19:25 108 18 95 Room Air 10/15/16 19:25 21 10/15/16 17:01 101 10/15/16 16:56 98.1 105 19 126/84 92 Room Air 10/15/16 15:39 97.3 112 20 131/89 95 Room Air 21 10/15/16 15:30 112 20 131/89 95 Room Air 10/15/16 14:49 21 10/15/16 14:48 112 20 97 Room Air 21 10/15/16 14:30 124 28 Room Air 10/15/16 14:30 119 22 134/98 95 Room Air 10/15/16 14:29 97.3 124 28 134/98 96 Room Air Intake and Output 10/15/16 10/16/16 19:00 07:00 Intake Total 300 ml 200 ml Balance 300 ml 200 ml Intake Oral 100 ml 100 ml IV Total 200 ml 100 ml # Voids 2 3 # Bowel Movements 1 Laboratory Tests Test 10/15/16 14:40 10/16/16 05:45 White Blood Count 11.1 K/UL (4.8-10.8) H 12.4 K/UL (4.8-10.8) H Red Blood Count 4.97 M/UL (4.20-5.40) 4.63 M/UL (4.20-5.40) Hemoglobin 14.4 G/DL (12.0-16.0) 13.6 G/DL (12.0-16.0) Hematocrit 43.2 % (37.0-47.0) 40.3 % (37.0-47.0) Mean Corpuscular Volume 87 FL (80-99) 87 FL (80-99) Mean Corpuscular Hemoglobin 28.9 PG (27.0-31.0) 29.4 PG (27.0-31.0) Mean Corpuscular Hemoglobin Concent 33.2 G/DL (32.0-36.0) 33.8 G/DL (32.0-36.0) Red Cell Distribution Width 11.8 % (11.6-14.8) 11.4 % (11.6-14.8) L Platelet Count 240 K/UL (150-450) 237 K/UL (150-450) Mean Platelet Volume 8.7 FL (6.5-10.1) 8.8 FL (6.5-10.1) Neutrophils (%) (Auto) 83.8 % (45.0-75.0) H % (45.0-75.0) Lymphocytes (%) (Auto) 10.7 % (20.0-45.0) L % (20.0-45.0) Monocytes (%) (Auto) 4.9 % (1.0-10.0) % (1.0-10.0) Eosinophils (%) (Auto) 0.0 % (0.0-3.0) % (0.0-3.0) Basophils (%) (Auto) 0.6 % (0.0-2.0) % (0.0-2.0) Sodium Level 137 mEQ/L (135-145) 134 mEQ/L (135-145) L Potassium Level 3.7 mEQ/L (3.4-4.9) 3.6 mEQ/L (3.4-4.9) Chloride Level 95 mEQ/L (98-107) L 90 mEQ/L (98-107) L Carbon Dioxide Level 26 mEQ/L (20-30) 27 mEQ/L (20-30) Anion Gap 16 (5-15) H 17 (5-15) H Blood Urea Nitrogen 17 mg/dL (7-23) 13 mg/dL (7-23) Creatinine 0.9 mg/dL (0.5-0.9) 0.9 mg/dL (0.5-0.9) Estimat Glomerular Filtration Rate > 60 mL/min (>60) > 60 mL/min (>60) Glucose Level 149 mg/dL (74-106) H 201 mg/dL (74-106) H Calcium Level 10.2 mg/dL (8.6-10.2) 9.6 mg/dL (8.6-10.2) Total Bilirubin 1.4 mg/dL (0.0-1.2) H 1.3 mg/dL (0.0-1.2) H Direct Bilirubin 0.3 mg/dL (0.1-0.3) 0.2 mg/dL (0.1-0.3) Aspartate Amino Transf (AST/SGOT) 33 U/L (5-40) 25 U/L (5-40) Alanine Aminotransferase (ALT/SGPT) 32 U/L (3-33) 29 U/L (3-33) Alkaline Phosphatase 69 U/L (35-104) 63 U/L (35-104) Total Creatine Kinase 278 U/L (26-140) H Creatine Kinase MB 3.0 ng/mL (< 3.8) Creatine Kinase MB Relative Index 1.0 Total Protein 7.1 g/dL (6.6-8.7) 6.6 g/dL (6.6-8.7) Albumin 4.7 g/dL (3.5-5.2) 4.5 g/dL (3.5-5.2) Globulin 2.4 g/dL 2.1 g/dL Albumin/Globulin Ratio 1.9 (1.0-2.7) 2.1 (1.0-2.7) Differential Total Cells Counted 100 Neutrophils % (Manual) 88 % (45-75) H Lymphocytes % (Manual) 9 % (20-45) L Monocytes % (Manual) 3 % (1-10) Eosinophils % (Manual) 0 % (0-3) Basophils % (Manual) 0 % (0-2) Band Neutrophils 0 % (0-8) Platelet Estimate Adequate Platelet Morphology Normal Red Blood Cell Morphology Normal Height (Feet): 5 Height (Inches): 9.00 Weight (Pounds): 230 Medications Current Medications Medications (Trade) Dose Ordered Sig/Eugene Route PRN Reason Start Time Stop Time Status Last Admin Dose Admin Acetaminophen (Tylenol) 650 mg Q4H PRN ORAL Mild Pain/Temp > 100.5 10/15/16 18:00 11/14/16 17:59 Albuterol/ Ipratropium (DuoNeb 0.5-3(2.5)mg/3ml) 3 ml Q4HRT HHN 10/15/16 19:00 10/20/16 18:59 10/16/16 10:59 Heparin Sodium (Porcine) (Heparin 5000 units/ml) 5,000 units EVERY 12 HOURS SUBQ 10/15/16 21:00 11/14/16 20:59 10/16/16 09:23 Levofloxacin (Levaquin 750mg/ D5W) 150 ml @ 100 mls/hr Q24H IVPB 10/15/16 18:00 10/22/16 17:59 10/15/16 17:53 Methylprednisolone Sodium Succinate (Solu-MEDROL) 40 mg EVERY 6 HOURS IVP 10/15/16 18:00 11/14/16 17:59 10/16/16 11:33 Pantoprazole (Protonix) 40 mg DAILY IVP 10/16/16 09:00 11/15/16 08:59 10/16/16 09:20 Promethazine HCl/ Codeine (Phenergan with Codeine) 10 ml Q8H PRN ORAL For Cough 10/16/16 02:15 11/15/16 02:14 10/16/16 11:33 Assessment/Plan Problem List: (1) asthma exacerbation (2) HTN (hypertension) ICD Codes: I10 - Essential (primary) hypertension SNOMED: [id number] Assessment/Plan IV steroids check sputum IV antibiotics monitor bp Neurology for bp treatment ADRIANNA SERRANO Oct 16, 2016 12:14
[2016-10-16] MEDS: Verapamil 80mg tab ORAL SCH ×2 (12:45→12:49)
--- NOTE | 2016-10-16 12:46 | Neurology Progress Note ---
Objective Physical Exam Last Vital Signs Date Time Temp Pulse Resp B/P Pulse Ox O2 Delivery O2 Flow Rate FiO2 10/16/16 10:59 95 18 99 Room Air 10/16/16 10:55 21 10/16/16 08:00 98.2 138/89 Laboratory Tests Test 10/15/16 14:40 10/16/16 05:45 White Blood Count 11.1 K/UL (4.8-10.8) H 12.4 K/UL (4.8-10.8) H Red Blood Count 4.97 M/UL (4.20-5.40) 4.63 M/UL (4.20-5.40) Hemoglobin 14.4 G/DL (12.0-16.0) 13.6 G/DL (12.0-16.0) Hematocrit 43.2 % (37.0-47.0) 40.3 % (37.0-47.0) Mean Corpuscular Volume 87 FL (80-99) 87 FL (80-99) Mean Corpuscular Hemoglobin 28.9 PG (27.0-31.0) 29.4 PG (27.0-31.0) Mean Corpuscular Hemoglobin Concent 33.2 G/DL (32.0-36.0) 33.8 G/DL (32.0-36.0) Red Cell Distribution Width 11.8 % (11.6-14.8) 11.4 % (11.6-14.8) L Platelet Count 240 K/UL (150-450) 237 K/UL (150-450) Mean Platelet Volume 8.7 FL (6.5-10.1) 8.8 FL (6.5-10.1) Neutrophils (%) (Auto) 83.8 % (45.0-75.0) H % (45.0-75.0) Lymphocytes (%) (Auto) 10.7 % (20.0-45.0) L % (20.0-45.0) Monocytes (%) (Auto) 4.9 % (1.0-10.0) % (1.0-10.0) Eosinophils (%) (Auto) 0.0 % (0.0-3.0) % (0.0-3.0) Basophils (%) (Auto) 0.6 % (0.0-2.0) % (0.0-2.0) Sodium Level 137 mEQ/L (135-145) 134 mEQ/L (135-145) L Potassium Level 3.7 mEQ/L (3.4-4.9) 3.6 mEQ/L (3.4-4.9) Chloride Level 95 mEQ/L (98-107) L 90 mEQ/L (98-107) L Carbon Dioxide Level 26 mEQ/L (20-30) 27 mEQ/L (20-30) Anion Gap 16 (5-15) H 17 (5-15) H Blood Urea Nitrogen 17 mg/dL (7-23) 13 mg/dL (7-23) Creatinine 0.9 mg/dL (0.5-0.9) 0.9 mg/dL (0.5-0.9) Estimat Glomerular Filtration Rate > 60 mL/min (>60) > 60 mL/min (>60) Glucose Level 149 mg/dL (74-106) H 201 mg/dL (74-106) H Calcium Level 10.2 mg/dL (8.6-10.2) 9.6 mg/dL (8.6-10.2) Total Bilirubin 1.4 mg/dL (0.0-1.2) H 1.3 mg/dL (0.0-1.2) H Direct Bilirubin 0.3 mg/dL (0.1-0.3) 0.2 mg/dL (0.1-0.3) Aspartate Amino Transf (AST/SGOT) 33 U/L (5-40) 25 U/L (5-40) Alanine Aminotransferase (ALT/SGPT) 32 U/L (3-33) 29 U/L (3-33) Alkaline Phosphatase 69 U/L (35-104) 63 U/L (35-104) Total Creatine Kinase 278 U/L (26-140) H Creatine Kinase MB 3.0 ng/mL (< 3.8) Creatine Kinase MB Relative Index 1.0 Total Protein 7.1 g/dL (6.6-8.7) 6.6 g/dL (6.6-8.7) Albumin 4.7 g/dL (3.5-5.2) 4.5 g/dL (3.5-5.2) Globulin 2.4 g/dL 2.1 g/dL Albumin/Globulin Ratio 1.9 (1.0-2.7) 2.1 (1.0-2.7) Differential Total Cells Counted 100 Neutrophils % (Manual) 88 % (45-75) H Lymphocytes % (Manual) 9 % (20-45) L Monocytes % (Manual) 3 % (1-10) Eosinophils % (Manual) 0 % (0-3) Basophils % (Manual) 0 % (0-2) Band Neutrophils 0 % (0-8) Platelet Estimate Adequate Platelet Morphology Normal Red Blood Cell Morphology Normal Impression/Recommendations Problems: (1) Labyrinthine dysfunction (2) HTN (hypertension) (3) asthma exacerbation Status: stable Recommendations #[id number] ENT outpatient for [facility] YELENA Deleon Oct 16, 2016 12:46
[2016-10-16] MEDS ORDERED: Promethazine/Codeine 5ml UD ORAL PRN ×2 (15:30→17:00)
[2016-10-16 16:00] VITALS: BP 123/90
[2016-10-16] MEDS ORDERED: guaiFENesin 100mg/5ml Liq ud ORAL PRN (16:30)
--- NOTE | 2016-10-16 17:28 | Consultation ---
DATE OF CONSULTATION: 10/16/2016 NEUROLOGICAL CONSULTATION CONSULTING PHYSICIAN: Tyree Andrews M.D. REFERRING PHYSICIAN: Tonio Browne M.D. HISTORY OF PRESENT ILLNESS: The patient is a 45-year-old female, seen in neurological consultation to evaluate chronic intermittent vertigo. The patient informed me that approximately in the year 1999, she had an episode of severe positional vertigo with gait instability, which then gradually resolved, but since then, the patient has almost weekly and at times daily episodes of slight mild vertigo, provoked usually by sharp head movement or body position. She was initially treated with meclizine, given Ativan, but due to addictive property of the medication, she stopped using it. She continued to have dizzy spells, which have become more pronounced in the last week since she has developed signs of upper respiratory infection with exacerbation of her bronchial asthma. The patient had at least two recent episodes to emergency room for her asthma attacks and was placed on prednisone, which was tapering down. She was readmitted for the treatment of exacerbation of asthma. Following admission, EKG with normal sinus rhythm. No PVCs. Her chest x-ray, no consolidation, no effusion, no pneumothorax noted. The patient indicated in the past, she had several CT scans of the brain, which were negative and were not helping with diagnosis for her dizziness. Current lab work included CBC study with WBC 11.1. Chemistry panel, elevated blood sugar 149. CK 278. Anion gap of 16. PAST MEDICAL HISTORY: The patient has a history of hypertension, hyperlipidemia, bronchial asthma, and obesity. MEDICATIONS: Her treatment includes Lipitor, albuterol, Flexeril t.i.d., Flonase, Advair, ibuprofen, levofloxacin, Dulera, Singulair, prednisone, Spiriva, Bactrim, and verapamil. ALLERGIES: None reported. SOCIAL HISTORY: The patient has no alcohol. No drug abuse. Nonsmoker. 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 FAMILY HISTORY: Noncontributory. REVIEW OF SYSTEMS: Positional dizziness frequently daily, upper respiratory infection last week with exacerbation of bronchial asthma. Denies hearing problem. Denies headaches, but has some blurriness of vision, which she frequently observed when using prednisone. No chest pain. No palpitation. Denies gait abnormality. No unilateral weakness, numbness, or tingling. PHYSICAL EXAMINATION: GENERAL: This is a well-developed, moderately obese female, not in acute distress, lying in bed, and having her lunch. VITAL SIGNS: Now stable. Blood pressure 138/89 and temperature 98.2. HEENT: Head, normocephalic. No evidence of trauma. Eyes, ears, and throat are clear. NECK: Supple. No meningeal signs. MUSCULOSKELETAL: Examination is unremarkable. There are no deformities. Peripheral pulses 1+ and symmetric. MENTAL STATUS: Alert and oriented x3. Speech is fluent. Language intact. There is no aphasia. No apraxia. Cognitive function normal. CRANIAL NERVES: Cranial Nerve II: Pupils are 2 mm, responding to light and accommodation. Extraocular movements are intact. No nystagmus including with head movement. CRANIAL NERVE V: Normal corneal responses. CRANIAL NERVE VII: No facial asymmetry. CRANIAL NERVE VIII: Slight hearing. No positional vertigo at this time. CRANIAL NERVE IX THROUGH XII: Tongue is in midline. Symmetric palate elevation. MOTOR EXAMINATION: Normal muscle tone. Strength 5/5 in all extremities. No involuntary movement. Deep tendon reflexes 1+ and symmetric with downgoing toes on both sides. SENSORY EXAM: Normal pinprick and light touch. GAIT: Not tested, but reported stable gait. IMPRESSION: 1. Recurrent positional vertigo, most likely representing chronic labyrinthitis. 2. Bronchial asthma exacerbation. 3. Hypertension. 4. Hyperlipidemia. 5. Obesity. DISCUSSION: 1. The patient is normal. Nonfocal neurological examination. 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 In absence of hearing loss and prolonged symptomatology, acoustic neuroma is less likely. 2. The patient to be seen by ENT with whom she has an early appointment; however, this should include electronystagmogram. Further diagnostic studies may include an MRI of internal auditory canals. 3. The patient's treatment may include [facility] for head and neck exercises, symptomatic use of meclizine for exacerbation. Thank you for allowing me to see this interesting patient in neurological consultation. Tyree Andrews M.D. DR: CAYLA JOB#: [id number] CC:
[2016-10-16 20:00] VITALS: BP 134/87
[2016-10-17] VITALS: BP 120/84
[2016-10-17] MEDS: DuoNeb 0.5-3(2.5)mg/3ml neb HHN SCH ×4 (03:00→14:16)
[2016-10-17 04:00] VITALS: BP 118/81
[2016-10-17] MEDS: Solu-MEDROL 40mg Inj IVP SCH ×2 (05:56→10:53)
[2016-10-17 08:00] VITALS: BP 127/82
[2016-10-17] MEDS: Heparin 5000 units/ml inj SUBQ SCH (08:57)
[2016-10-17] MEDS ORDERED: Montelukast 10mg tablet ORAL SCH ×2 (09:00)
[2016-10-17] MEDS ORDERED: Pantoprazole Inj IVP SCH (09:00)
[2016-10-17] MEDS ORDERED: Verapamil 80mg tab ORAL SCH (09:00)
[2016-10-17] MEDS ORDERED: Verapamil 180mg SR tab ORAL SCH (09:00)
[2016-10-17 12:00] VITALS: BP 138/76
[2016-10-17] MEDS ORDERED: Tubing IV Secondary IV ONE (14:44)
[2016-10-17] MEDS ORDERED: NS 275ml ONE (14:44)
--- NOTE | 2016-10-17 18:55 | Cardiology Report ---
APPROVED REPORT EKG Measurement Heart [id number] Sinus tachycardia Possible Left atrial enlargement Borderline ECG
--- NOTE | 2016-10-19 11:05 | Discharge Summary ---
Discharge Summary Hospital Course Date of Admission Oct 15, 2016 at 14:50 Date of Discharge Oct 17, 2016 at 14:45 Admitting Diagnosis asthma exac HPI Yessenia Dale is a 45 year old female who was admitted on Oct 15, 2016 at 14 :50 for Asthma Exacerbation Hospital Course [id number] Discharge Discharge Disposition Patient was discharged to home Discharge Diagnoses: Mariam Andino NP Oct 19, 2016 11:05
--- NOTE | 2016-10-20 02:00 | Discharge Summary 2 SIG ---
DATE OF ADMISSION: 10/15/2016 DATE OF DISCHARGE: 10/17/2016 CONSULTANTS: Tyree Andrews M.D. BRIEF HOSPITAL COURSE: The patient is a 45-year-old female with history of asthma and nonsmoker, who presented to ED with increasing shortness of breath. The patient has been on albuterol and without improvement in shortness of breath. She presented with chest tightness and complaining of dizziness. She was seen by Dr. Andrews. For neurological consultation. Neurologic examination was nonfocal. 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 She was given symptomatic use of meclizine for exacerbation. Recommend to follow up with ENT as outpatient for electronystagmogram and may need a [facility] for head and neck exercises. She was eventually discharged home. FINAL DIAGNOSES: 1. Recurrent positional vertigo, most likely representing labyrinthitis. 2. Acute bronchial asthma in exacerbation. 3. Hypertension. 4. Hyperlipidemia. Tonio Browne M.D. I have been assigned to dictate discharge summary on this account and I was not involved in the patient's management. Mariam Andino N.P. DR: DAQUAN JOB#: [id number] CC: ZACK
== END 2016-10-17 14:45 | disposition home or self-care (01) | DRG 141 ==
LOC: EMR 14:40 → EDBEDREQ 14:45 → 2W 14:50 → EDBEDREQ 15:23 → 2W 19:20 → 4W 10-16 13:31
DX: J45.901 Unspecified asthma with (acute) exacerbation (principal); I10 Essential (primary) hypertension; H83.09 Labyrinthitis, unspecified ear; E78.5 Hyperlipidemia, unspecified; E66.9 Obesity, unspecified
CPT/HCPCS: 36415; 71010; 80053; 82248; 82550; 82553; 85007; 85025; 93005; 94640; J7620

== ENCOUNTER 2019-03-31 08:53 | Emergency (ER) | payer OTHER ==
[~2019-03-31] VITALS: Ht 172.7 cm; Wt 98.4 kg
[2019-03-31 09:05] VITALS: BP 149/89
--- NOTE | 2019-03-31 09:05 | NUR ---
ED Nurse Note: pt walked in from home due to shortness of breath. pt aao x4 and ambulatory. skin clean and intact. calm and cooperative. no wheezing, no signs of pulmonary distress noted at this time. pt stated "I feel like shortness of breath."
--- NOTE | 2019-03-31 09:14 | NUR ---
ED Nurse Note: pt is getting breathing treatment by RT at bedside.
[2019-03-31] MEDS ORDERED: Albuterol ud Inhalation HHN ONE (09:15)
[2019-03-31] MEDS ORDERED: Ipratropium 0.02% Inh Soln 2.5ml UD HHN ONE (09:15)
--- NOTE | 2019-03-31 09:17 | NUR ---
ED Nurse Note: chest x-ray at bedside.
--- NOTE | 2019-03-31 09:26 | Emergency Room Report ---
History of Present Illness General Chief Complaint: Dyspnea/Respdistress Source: Patient Present Illness HPI 48-year-old female presents ED for evaluation. Brought in by of breath for the last 2 days. Feels chest tightness. Denies chest pain. History of asthma. Denies smoking. Denies cough. States that she was recently living in [place] to see if the dry air would help her asthma which it did not. No other aggravating relieving factors. Denies any other associated symptoms Allergies: Coded Allergies: No Known Allergies (Verified , 08/28/07) Patient History Past Medical History: HTN, asthma Past Surgical History: none Pertinent Family History: none Social History: Denies: smoking, alcohol use, drug use Now: No Immunizations: UTD Reviewed Nursing Documentation: PMH: Agreed; PSxH: Agreed Nursing Documentation-PMH Hx Hypertension: Yes Hx Asthma: Yes Hx Diabetes: No Hx Cancer: No Hx Gastrointestinal Problems: No Hx Dialysis: No Hx Neurological Problems: No Hx Cerebrovascular Accident: No Hx Seizures: No Hx Vertigo: Yes Review of Systems All Other Systems: negative except mentioned in HPI Physical Exam Vital Signs Date Time Temp Pulse Resp B/P (MAP) Pulse Ox O2 Delivery O2 Flow Rate FiO2 03/31/19 08:56 98.8 94 19 149/89 (109) 95 Room Air 03/31/19 09:15 21 Sp02 EP Interpretation: reviewed, normal General Appearance: no apparent distress, alert, GCS 15, non-toxic Head: normocephalic, atraumatic Eyes: bilateral eye normal inspection, bilateral eye PERRL ENT: hearing grossly normal, normal pharynx, no angioedema, normal voice Neck: full range of motion, supple/symm/no masses Respiratory: chest non-tender, normal breath sounds, decreased breath sounds, speaking full sentences Cardiovascular #1: regular rate, rhythm, no edema Cardiovascular #2: 2+ carotid (R), 2+ carotid (L), 2+ radial (R), 2+ radial (L) , 2+ dorsalis pedis (R), 2+ dorsalis pedis (L) Gastrointestinal: normal bowel sounds, non tender, soft, non-distended, no guarding, no rebound Rectal: deferred Genitourinary: normal inspection, no CVA tenderness Musculoskeletal: back normal, gait/station normal, normal range of motion, non- tender Neurologic: alert, oriented x3, responsive, motor strength/tone normal, sensory intact, speech normal Psychiatric: judgement/insight normal, memory normal, mood/affect normal, no suicidal/homicidal ideation Reflexes: 3+ bicep (R), 3+ bicep (L), 3+ tricep (R), 3+ tricep (L), 3+ knee (R) , 3+ knee (L) Lymphatic: no adenopathy Medical Decision Making Diagnostic Impression: Primary Impression: Bronchitis ER Course Hospital Course 48 yo F presents to ED c/o chest tightness. h/o asthma Differential diagnoses include: URI, bronchitis, asthma/COPD, pneumonia Clinical course Patient placed on stretcher. After initial history and physical I ordered prednisone, cxr, ekg and nebulizer treatment. EKGnormal sinus rhythm no acute ischemic changes interpreted by me Chest x-rayno focal consolidation, no pneumothorax, Upon reassessment patient states somewhat short of breath still. Overall better. States that she has long-standing history of asthma and has had been intubated in the past. I offered to check labs and place IV but patient declined stating that she has had recent lab work done. States that she will follow-up with her PMD. Given history of long-standing asthma and frequent intubations, will prescribe antibiotics as well as prednisone and inhaler. Safe for discharge for close outpatient follow-up Diagnosis - bronchitis Stable and discharged home with prescriptions for Rx amoxicillin, prednisone, albuterol. Instructed to followup with PMD. Return to ED if symptoms recur or worsen EKG Diagnostic Results Rate: normal Rhythm: NSR ST Segments: no acute changes ASA given to the pt in ED: No Rhythm Strip Diag. Results EP Interpretation: yes Rhythm: NSR, no PVC's, no ectopy Chest X-Ray Diagnostic Results Chest X-Ray Diagnostic Results : Chest X-Ray Ordered: Yes # of Views/Limited/Complete: 1 View Indication: Shortness of Breath EP Interpretation: Yes Interpretation: no consolidation, no effusion, no pneumothorax, no acute cardiopulmonary disease Impression: No acute disease Electronically Signed by: Electronically signed by Blu Gonsales MD Last Vital Signs Date Time Temp Pulse Resp B/P (MAP) Pulse Ox O2 Delivery O2 Flow Rate FiO2 03/31/19 09:15 88 19 98 Room Air 21 8/12/19 09:05 98.8 149/89 Status: improved Disposition: HOME, SELF-CARE Condition: Stable Scripts Amoxicillin* (AMOXIL*) 500 Mg Capsule 500 MG ORAL THREE TIMES A DAY, #21 CAP Prov: Blu Gonsales MD 03/31/19 Albuterol Sulfate* (ALBUTEROL SULFATE MDI*) 8.5 Gm Hfa.aer.ad 2 PUFF INH Q6H, #1 EA 0 Refills Prov: Blu Gonsales MD 03/31/19 Prednisone* (PREDNISONE*) 20 Mg Tablet 40 MG ORAL DAILY, #10 TAB Prov: Blu Gonsales MD 03/31/19 Blu Gonsales MD Mar 31, 2019 09:25
--- NOTE | 2019-03-31 09:44 | NUR ---
ED Nurse Note: pt refused x3 blood work. ERMD made aware and he is at bedside.
[2019-03-31] MEDS ORDERED: Solu-MEDROL 125mg Inj IVP ONE (09:45)
[2019-03-31] MEDS ORDERED: ALBUTEROL SULF8.5 GM INH (09:50)
[2019-03-31] MEDS ORDERED: PREDNISONE20 MG ORAL (09:50)
[2019-03-31] MEDS ORDERED: AMOXICILLIN500 MG ORAL (09:50)
[2019-03-31 09:54] VITALS: BP 149/89
--- NOTE | 2019-03-31 09:55 | NUR ---
ER DISCHARGE NOTE: Patient is cleared to be discharged per ERMD, pt is aox4, on room air, with stable vital signs. pt was given dc and electronical prescription instructions, pt was able to verbalize understanding, pt id band removed. pt is able to ambulate with steady gait. pt took all belongings.
--- NOTE | 2019-03-31 12:57 | Diagnostic Imaging Report ---
Indication: Dyspnea Comparison: 10/15/2016 A single view chest radiograph was obtained. Findings: The heart is enlarged. Lungs are clear. Pulmonary vascularity is normal. No pleural effusion seen. IMPRESSION: No acute disease
== END 2019-03-31 09:56 | disposition home or self-care (01) ==
LOC: EMR 09:24
DX: J40 Bronchitis, not specified as acute or chronic (principal); I10 Essential (primary) hypertension; J45.909 Unspecified asthma, uncomplicated
CPT/HCPCS: 71045; 93005; 94640; 94664; 99284; J7512

== ENCOUNTER 2019-05-01 05:12 | Emergency (ER) | payer OTHER ==
[~2019-05-01] VITALS: Ht 172.7 cm; Wt 102.1 kg
[~2019-05-01 05:12] MED LIST changes: +AMOXICILLIN500 MG ORAL
[2019-05-01 05:25] VITALS: BP 115/60
--- NOTE | 2019-05-01 05:25 | NUR ---
ED Nurse Note: Pt walked in to ER due to right lower back pain that radiates to right leg x4 days. Patient stated she bent down to pick something up and felt more pain afterwards. No injuries prior to pain. Patient is noted with blackish discoloration on her right lower back. Has history of HTN, chronic asthma. Alert and oriented x4, verbally responsive. Breathing even and unlabored. VSS.
[2019-05-01] MEDS ORDERED: Isovue-300 100ml vial INJ PRN (06:00)
--- NOTE | 2019-05-01 06:17 | NUR ---
ED Nurse Note: Urine and blood sent to lab.
[2019-05-01 06:29] LABS: HEMATOCRIT 47.5 % (37.0-47.0); HEMOGLOBIN 15.8 G/DL (12.0-16.0); MEAN CORPUSCULAR VOLUME 92 FL (80-99); PLATELET COUNT 275 K/UL (150-450); RED BLOOD COUNT 5.17 M/UL (4.20-5.40); RED CELL DISTRIBUTION WIDTH 11.6 % (11.6-14.8); WHITE BLOOD COUNT 12.5 K/UL (4.8-10.8)
[2019-05-01 06:30] LABS: APPEARANCE,URINE CLEAR; BILIRUBIN, URINE NEGATIVE (NEGATIVE); COLOR,URINE PALE YELLOW; GLUCOSE, URINE (UA) NEGATIVE (NEGATIVE); KETONES,URINE NEGATIVE (NEGATIVE); LEUKOCYTE ESTERASE ,URINE NEGATIVE (NEGATIVE); NITRITE,URINE NEGATIVE (NEGATIVE); PH,URINE 7 (4.5-8.0); PROTEIN,URINE NEGATIVE (NEGATIVE); UROBILINOGEN,URINE NORMAL MG/DL (0.0-1.0)
[2019-05-01 06:46] LABS: ANION GAP 10 mmol/L (5-15); BLOOD UREA NITROGEN 10 mg/dL (7-18); CALCIUM 10.2 MG/DL (8.5-10.1); CARBON DIOXIDE 26 MMOL/L (21-32); CHLORIDE 105 MMOL/L (98-107); CREATININE 0.9 MG/DL (0.55-1.30); POTASSIUM 4.8 MMOL/L (3.5-5.1); SODIUM 141 MMOL/L (136-145)
[2019-05-01 06:55] LABS: ALANINE AMINOTRANSFERASE 26 U/L (12-78); ALBUMIN 4.3 G/DL (3.4-5.0); ALBUMIN/GLOBULIN RATIO 1.3 (1.0-2.7); ALKALINE PHOSPHATASE 79 U/L (46-116); ASPARTATE AMINO TRANSFERASE 20 U/L (15-37); BILIRUBIN,TOTAL 1.7 MG/DL (0.2-1.0)
[2019-05-01 06:57] LABS: BILIRUBIN,DIRECT 0.2 MG/DL (0.0-0.3)
--- NOTE | 2019-05-01 06:58 | NUR ---
ED Nurse Note: Went down to CT.
--- NOTE | 2019-05-01 06:59 | Emergency Room Report ---
History of Present Illness General Chief Complaint: Back Pain-No Injury Source: Patient (Blu Gonsales MD) Present Illness HPI 48-year-old female presents ED for evaluation. Complaining of back pain which started 4 days ago. Radiating down her right leg. States that pain was there when she woke up one day but got worse after she took over and picked up something sharp, 8 out of 10, radiating down the right leg. States it is difficult to get up because of the pain. States there is a bruise to her lower back. Denies falling. No other aggravating relieving factors. Denies any other associated symptoms (Blu Gonsales MD) Allergies: Coded Allergies: No Known Allergies (Verified , 08/28/07) Patient History Social History: Denies: smoking, alcohol use, drug use Last Menstrual Period: 2011 Now: No : 1 Para: 0 Immunizations: UTD Reviewed Nursing Documentation: PMH: Agreed; PSxH: Agreed (Blu Gonsales MD) Nursing Documentation-PMH Hx Hypertension: Yes Hx Asthma: Yes Hx COPD: Yes Hx Diabetes: No Hx Cancer: No Hx Gastrointestinal Problems: No Hx Dialysis: No Hx Neurological Problems: No Hx Cerebrovascular Accident: No Hx Seizures: No Hx Vertigo: Yes (Blu Gonsales MD) Review of Systems All Other Systems: negative except mentioned in HPI (Blu Gonsales MD) Physical Exam Vital Signs Date Time Temp Pulse Resp B/P (MAP) Pulse Ox O2 Delivery O2 Flow Rate FiO2 05/01/19 05:18 98.2 103 18 115/60 (78) 95 Room Air Sp02 EP Interpretation: reviewed, normal General Appearance: no apparent distress, alert, GCS 15, non-toxic, obese Head: normocephalic Eyes: bilateral eye normal inspection, bilateral eye PERRL ENT: normal ENT inspection Neck: normal inspection Respiratory: chest non-tender, lungs clear, normal breath sounds, speaking full sentences Cardiovascular #1: regular rate, rhythm, no edema Gastrointestinal: normal bowel sounds, non tender, soft, non-distended, no guarding, no rebound Rectal: deferred Genitourinary: no CVA tenderness Musculoskeletal: tender - paraspinal lumbar tenderness on right Neurologic: alert, oriented x3, responsive, motor strength/tone normal, sensory intact, speech normal Psychiatric: normal inspection Skin: other - 6x3cm bruise to right lower back Lymphatic: normal inspection (Blu Gonsales MD) Medical Decision Making Diagnostic Impression: Primary Impression: Low back pain Labs Test 05/01/19 06:15 White Blood Count 12.5 K/UL (4.8-10.8) Red Blood Count 5.17 M/UL (4.20-5.40) Hemoglobin 15.8 G/DL (12.0-16.0) Hematocrit 47.5 % (37.0-47.0) Mean Corpuscular Volume 92 FL (80-99) Mean Corpuscular Hemoglobin 30.5 PG (27.0-31.0) Mean Corpuscular Hemoglobin Concent 33.2 G/DL (32.0-36.0) Red Cell Distribution Width 11.6 % (11.6-14.8) Platelet Count 275 K/UL (150-450) Mean Platelet Volume 7.9 FL (6.5-10.1) Neutrophils (%) (Auto) % (45.0-75.0) Lymphocytes (%) (Auto) % (20.0-45.0) Monocytes (%) (Auto) % (1.0-10.0) Eosinophils (%) (Auto) % (0.0-3.0) Basophils (%) (Auto) % (0.0-2.0) Urine Color Pale yellow Urine Appearance Clear Urine pH 7 (4.5-8.0) Urine Specific [place] 1.010 (1.005-1.035) Urine Protein Negative (NEGATIVE) Urine Glucose (UA) Negative (NEGATIVE) Urine Ketones Negative (NEGATIVE) Urine Blood 2+ (NEGATIVE) Urine Nitrite Negative (NEGATIVE) Urine Bilirubin Negative (NEGATIVE) Urine Urobilinogen Normal MG/DL (0.0-1.0) Urine Leukocyte Esterase Negative (NEGATIVE) Urine RBC 2-4 /HPF (0 - 2) Urine WBC 0-2 /HPF (0 - 2) Urine Squamous Epithelial Cells Few /LPF (NONE/OCC) Urine Bacteria None /HPF (NONE) Sodium Level 141 MMOL/L (136-145) Potassium Level 4.8 MMOL/L (3.5-5.1) Chloride Level 105 MMOL/L (98-107) Carbon Dioxide Level 26 MMOL/L (21-32) Anion Gap 10 mmol/L (5-15) Blood Urea Nitrogen 10 mg/dL (7-18) Creatinine 0.9 MG/DL (0.55-1.30) Estimat Glomerular Filtration Rate > 60 mL/min (>60) Glucose Level 155 MG/DL (74-106) Calcium Level 10.2 MG/DL (8.5-10.1) Total Bilirubin 1.7 MG/DL (0.2-1.0) Direct Bilirubin 0.2 MG/DL (0.0-0.3) Aspartate Amino Transf (AST/SGOT) 20 U/L (15-37) Alanine Aminotransferase (ALT/SGPT) 26 U/L (12-78) Alkaline Phosphatase 79 U/L (46-116) Total Protein 7.5 G/DL (6.4-8.2) Albumin 4.3 G/DL (3.4-5.0) Globulin 3.2 g/dL Albumin/Globulin Ratio 1.3 (1.0-2.7) (Blu Gonsales MD) Last Vital Signs Date Time Temp Pulse Resp B/P (MAP) Pulse Ox O2 Delivery O2 Flow Rate FiO2 05/01/19 05:25 98.2 80 18 115/60 95 Room Air (Blu Gonsales MD) Reevaluation Time: 08:23 Reevaluation Impression Assumed care of the patient approximately [address] do not show any gross evidence of fracture, renal issue or other major pathology. Official reports are pending. Labs have returned largely within normal limits. The patient is requesting discharge as she has another appointment this morning. She may follow-up with her PMD. She is already on ibuprofen and steroids. Provided detailed return instructions and discussed need for follow- up with her PMD for possible referral to orthopedic surgery or sports rehab. She understands and agrees with the treatment plan was discharged home. (Mehdi Teixeira MD) Disposition: HOME, SELF-CARE Condition: Stable Referrals: [facility],REFERRING (PCP) Blu Gonsales MD May 01, 2019 06:59 Mehdi Teixeira MD May 01, 2019 08:24
[2019-05-01] MEDS ORDERED: Methocarbamol 750mg tab ORAL ONE (07:00)
[2019-05-01] MEDS ORDERED: Ketorolac 30mg Inj IV ONE (07:00)
--- NOTE | 2019-05-01 07:12 | NUR ---
HAND-OFF: Report given to Johana SWEET. Endorsed nursing care.
--- NOTE | 2019-05-01 07:16 | NUR ---
ED Nurse Note: pt care assummed. pt returned from ct scan
--- NOTE | 2019-05-01 08:06 | Diagnostic Imaging Report ---
Indication: Abdominal pain Technique: Continuous helical transaxial imaging of the abdomen and pelvis was obtained from the lung bases to the pubic symphysis during intravenous contrast administration. Coronal 2-D reformats were also obtained. Study obtained in a Siemens sensation [address] Automatic Exposure Control was utilized. Total Dose length Product (DLP): 989.[address] Dose Index Volume (CTDIvol): 19.28 mGy Comparison: None Findings: Lung bases are clear. The liver is hypodense consistent with fatty infiltration. Accessory spleen noted. Kidneys are unremarkable. The gallbladder, pancreas and adrenal glands are unremarkable. Bowel gas pattern is nonobstructive. The appendix is normal. Uterus is absent. Urinary bladder is unremarkable. IMPRESSION: Fatty liver No acute findings otherwise. Incidental findings as described above The CT scanner at [facility] is accredited by the [employer] and the scans are performed using dose optimization techniques as appropriate to a performed exam including Automatic Exposure control.
--- NOTE | 2019-05-01 08:10 | NUR ---
ED Nurse Note: pt requesting to be dc home, aware awaiting ct results
[2019-05-01 08:25] VITALS: BP 118/58
--- NOTE | 2019-05-01 08:25 | NUR ---
ER DISCHARGE NOTE: Patient is cleared to be discharged per ERMD, pt is aox4, on room air, with stable vital signs. pt was given dc instructions, pt was able to verbalize understanding, pt id band and iv site removed without complications. pt is able to ambulate with steady gait. pt took all belongings.
== END 2019-05-01 08:25 | disposition home or self-care (01) ==
LOC: EMR 05:38
DX: M54.5 Low back pain (principal); I10 Essential (primary) hypertension; J44.9 Chronic obstructive pulmonary disease, unspecified
CPT/HCPCS: 36415; 74177; 80053; 81003; 82248; 85025; 96374; 99284; J1885; Q9967

== ENCOUNTER 2019-05-26 19:11 | Emergency (ER) | payer MEDICARE ==
[~2019-05-26] VITALS: Ht 170.2 cm; Wt 113.4 kg
--- NOTE | 2019-05-26 19:18 | NUR ---
ED Nurse Note: patirnt in room 3 compklianing of wheezing known asthmatic. Monitor placed on patient changed to gown.
[2019-05-26] MEDS ORDERED: Dexamethasone 4mg/ml vial IM ONE (19:30)
--- NOTE | 2019-05-26 19:38 | NUR ---
ED Nurse Note: Patient ith RT medications given given as prescribed.
[2019-05-26 19:39] VITALS: BP 169/87
[2019-05-26] MEDS: Albuterol/Ipratropium 3ml neb HHN SCH ×2 (19:43→19:59)
--- NOTE | 2019-05-26 20:38 | Emergency Room Report ---
History of Present Illness General Chief Complaint: Asthma Source: Patient Present Illness HPI 48-year-old female with history of asthma currently not controlled despite multiple inhalers and steroids that she has been taking here complaining of asthma exacerbation for the past 4 days. Patient reports that she has been using her albuterol inhaler as well as taking oral steroids without any relief. Patient has been using breathing treatments at home. Denies smoking or drug use. Denies chest pain, palpitation, nausea vomiting and abdominal pain. Complains of cough however denies sore throat and fever and chills. Has not taken medication for symptom relief other than asthma medication. Reports that she has a little window of pain and 9 as lack of air circulation exacerbates her asthma. Patient has an upcoming appointment with her tool designer tomorrow. Patient has oxygenation of 90% and a mild distress however speaks in full sentences and denies headache and dizziness. Allergies: Coded Allergies: No Known Allergies (Verified , 08/28/07) Patient History Past Medical History: see triage record, asthma Past Surgical History: unable to obtain Pertinent Family History: none Last Menstrual Period: 2011 Now: No : 1 Para: 0 Immunizations: UTD Reviewed Nursing Documentation: PMH: Agreed; PSxH: Agreed Nursing Documentation-PMH Hx Cardiac Problems: Yes - high chol Hx Hypertension: Yes Hx Asthma: Yes Hx COPD: Yes Hx Diabetes: No Hx Cancer: No Hx Gastrointestinal Problems: No Hx Dialysis: No Hx Neurological Problems: No Hx Cerebrovascular Accident: No Hx Seizures: No Hx Vertigo: Yes Review of Systems All Other Systems: negative except mentioned in HPI Physical Exam Vital Signs Date Time Temp Pulse Resp B/P (MAP) Pulse Ox O2 Delivery O2 Flow Rate FiO2 05/26/19 19:12 97.9 108 16 148/82 (104) 90 Room Air 05/26/19 20:00 2.0 28 Sp02 EP Interpretation: reviewed, normal General Appearance: no apparent distress, alert, GCS 15, non-toxic Head: normocephalic, atraumatic Eyes: bilateral eye normal inspection, bilateral eye PERRL ENT: hearing grossly normal, normal pharynx, no angioedema, normal voice Neck: full range of motion, supple/symm/no masses Respiratory: chest non-tender, no rhonchi, no respiratory distress, no retraction, no accessory muscle use, speaking full sentences, wheezing - diffuse Cardiovascular #1: regular rate, rhythm, no edema, no murmur Gastrointestinal: normal bowel sounds, non tender, soft, non-distended, no guarding, no rebound Rectal: deferred Genitourinary: normal inspection, no CVA tenderness Musculoskeletal: back normal, gait/station normal, normal range of motion, non- tender, no calf tenderness Neurologic: alert, oriented x3, responsive, motor strength/tone normal, sensory intact, speech normal Psychiatric: judgement/insight normal, memory normal, mood/affect normal, no suicidal/homicidal ideation Skin: no rash Lymphatic: no adenopathy Medical Decision Making PA Attestation All my diagnosis and treatment plans were reviewed ad discussed with my supervising physician Dr. Gonsales Diagnostic Impression: Primary Impression: asthma exacerbation Additional Impression: Upper respiratory infection ER Course 48-year-old female with history of asthma currently not controlled despite multiple inhalers and steroids that she has been taking here complaining of asthma exacerbation for the past 4 days. Patient reports that she has been using her albuterol inhaler as well as taking oral steroids without any relief. Patient has been using breathing treatments at home. Denies smoking or drug use. Denies chest pain, palpitation, nausea vomiting and abdominal pain. Complains of cough however denies sore throat and fever and chills. Has not taken medication for symptom relief other than asthma medication. Reports that she has a little window of pain and 9 as lack of air circulation exacerbates her asthma. Patient has an upcoming appointment with her tool designer tomorrow. Patient has oxygenation of 90% and a mild distress however speaks in full sentences and denies headache and dizziness. Ddx considered but are not limited to: bronchitis, PNA, URI viral, asthma exacerbation Vital signs: are WNL, pt. is afebrile H&PE are most consistent with: Asthma exacerbation, upper respiratory infection presumed bacterial due to asthma ORDERS: Chest x-ray, azithromycin, Qvar, prednisone ED INTERVENTIONS: Breathing treatment DISCHARGE: At this time pt. is stable for d/c to home. Will provide printed patient care instructions, and any necessary prescriptions. Care plan and follow up instructions have been discussed with the patient prior to discharge. Advised patient to follow-up with tool designer and if worsening symptoms return to the emergency room patient is stable at time of discharge and feels better. Chest X-Ray Diagnostic Results Chest X-Ray Diagnostic Results : Chest X-Ray Ordered: Yes # of Views/Limited/Complete: 1 View Indication: Shortness of Breath EP Interpretation: Yes ERMA Xray: Interpretation reviewed, by supervising MD, and agrees with findings. Interpretation: no consolidation, no effusion, no pneumothorax Impression: No acute disease Electronically Signed by: Kellen Gutierrez PA-C Last Vital Signs Date Time Temp Pulse Resp B/P (MAP) Pulse Ox O2 Delivery O2 Flow Rate FiO2 05/26/19 20:00 100 22 99 Nasal Cannula 2.0 28 100 22 98 05/26/19 19:39 169/87 05/26/19 19:12 97.9 Disposition: HOME, SELF-CARE Condition: Stable Scripts Beclomethasone Dipropionate 40MCG Oral Inh (QVAR 40*) 7.3 Gm Aer.w.adap 2 PUFFS INH TWICE A DAY, #7 GM 0 Refills Prov: Kellen Tomlinson 05/26/19 Prednisone* (PREDNISONE*) 20 Mg Tablet 40 MG ORAL DAILY for 5 Days, #10 TAB Prov: Kellen Tomlinson 05/26/19 Azithromycin* (ZITHROMAX*) 250 Mg Tablet 250 MG ORAL DAILY, #6 TAB 0 Refills Take two tables once daily for 1 day, then one tablet once daily for 4 days. Prov: Kellen Tomlinson 05/26/19 Patient Instructions: Asthma, Adult, Upper Respiratory Infection, Adult, Easy- to-Read Additional Instructions: Follow-up with your primary care provider for referral to tool designer for better management of asthma, take medication as directed, avoid exposure to smokers, and chemical exposure Kellen Tomlinson May 26, 2019 20:38
[2019-05-26] MEDS ORDERED: PREDNISONE20 MG ORAL (20:40)
[2019-05-26] MEDS ORDERED: QVAR7.3 GM INH (20:40)
[2019-05-26] MEDS ORDERED: ZITHROMAX250 MG ORAL (20:40)
--- NOTE | 2019-05-26 20:52 | NUR ---
ER DISCHARGE NOTE: Patient is cleared to be discharged per ERMD, pt is aox4, on room air, with stable vital signs. pt was given dc and prescription instructions, pt was able to verbalize understanding, pt id band removed. pt is able to ambulate with steady gait. pt took all belongings.
[2019-05-26 21:00] VITALS: BP 134/87
--- NOTE | 2019-05-27 17:03 | Diagnostic Imaging Report ---
Indication: Shortness of breath Technique: One view of the chest Comparison: 03/31/2019 Findings: Lungs and pleural spaces are clear. Heart size is normal. No significant change Impression: No acute process
[2019-05-30] MEDS ORDERED: MEDROL DOSEPAK4 MG ORAL (09:52)
[2019-05-30] MEDS ORDERED: ALBUTEROL SULF8.5 GM INH (09:52)
== END 2019-05-26 21:00 | disposition home or self-care (01) ==
LOC: EMR 19:31
DX: J45.901 Unspecified asthma with (acute) exacerbation (principal); J06.9 Acute upper respiratory infection, unspecified; E78.00 Pure hypercholesterolemia, unspecified; I10 Essential (primary) hypertension; J44.9 Chronic obstructive pulmonary disease, unspecified; Z79.51 Long term (current) use of inhaled steroids
CPT/HCPCS: 71045; 94640; 94664; 96372; 99284; J1100; J7620

== ENCOUNTER 2019-06-02 12:45 | Emergency (ER) | payer MEDICARE, MEDICAID ==
[~2019-06-02] VITALS: Ht 172.7 cm; Wt 99.8 kg
[~2019-06-02 12:45] MED LIST changes: +QVAR7.3 GM INH; +ZITHROMAX250 MG ORAL
[2019-06-02] MEDS ORDERED: Dexamethasone 4mg/ml vial IVP ONE (13:00)
--- NOTE | 2019-06-02 13:00 | NUR ---
ED Nurse Note: PT WALKED IN TO ER TODAY FROM HOME. AOX4. PT C/O SOB DUE TO ASTHMA. PT STATES SHE WAS HERE TWO DAYS AGO AND SEEN FOR THE SAME SYMPTOMS BUT THAT THEY NEVER WENT AWAY. AT BEDSIDE, PT IS ABLE TO SPEAK IN FULL SENTENCES, NO SIGNS OF RESPIRATORY DISTRESS, RETRACTIONS, OR ACCESSORY MUSCLE USE NOTED. RR18, O2 SAT 95% ON RA. WHEEZING AND DIMINISHED LUNG SOUNDS AUSCULTATED TO ALL LOBES.
--- NOTE | 2019-06-02 13:04 | NUR ---
ED Nurse Note: RT CALLED FOR BREATHING TX.
[2019-06-02 13:07] VITALS: BP 160/91
--- NOTE | 2019-06-02 13:08 | Emergency Room Report ---
History of Present Illness General Chief Complaint: Dyspnea/Respdistress Source: Patient Present Illness HPI 48-year-old female presents with acute shortness of breath x4 days, patient endorses chest tightness, no aggravating factors alleviating factors albuterol severity is severe, constant, patient also with cough, no fever chills, no dyspnea on exertion, patient has been intubated in the past for her COPD, no nausea no vomiting, patient presents for evaluation. Allergies: Coded Allergies: No Known Allergies (Verified , 08/28/07) Patient History Past Medical History: see triage record Social History: Reports: smoking - former smoker Last Menstrual Period: menauposal Now: No Reviewed Nursing Documentation: PMH: Agreed; PSxH: Agreed Nursing Documentation-PMH Past Medical History: No History, Except For Hx Cardiac Problems: Yes - high chol Hx Hypertension: Yes Hx Asthma: Yes Hx COPD: Yes Hx Diabetes: No Hx Cancer: No Hx Gastrointestinal Problems: No Hx Dialysis: No Hx Neurological Problems: No Hx Cerebrovascular Accident: No Hx Seizures: No Hx Vertigo: Yes Review of Systems All Other Systems: negative except mentioned in HPI Physical Exam Vital Signs Date Time Temp Pulse Resp B/P (MAP) Pulse Ox O2 Delivery O2 Flow Rate FiO2 06/02/19 12:53 98.2 110 22 147/82 (103) 93 Room Air Sp02 EP Interpretation: reviewed, normal General Appearance: well appearing, alert, moderate distress Head: normocephalic, atraumatic Eyes: bilateral eye PERRL, bilateral eye EOMI ENT: uvula midline, moist mucus membranes Neck: supple, thyroid normal, supple/symm/no masses Respiratory: decreased breath sounds, accessory muscle use, wheezing Cardiovascular #1: normal peripheral pulses, no edema, no gallop, no murmur, tachycardia Gastrointestinal: non tender, soft, no guarding, no rebound Musculoskeletal: normal inspection Neurologic: alert, oriented x3 Psychiatric: mood/affect normal Skin: no rash, warm/dry Procedures Critical Care Time Critical Care Time Given the critical condition in which the patient arrived, the patient was immediately assessed by myself and the nurse, and cardiac monitoring initiated due to the potential for rapid decompensation of the patient's clinical condition. During the course of the patient's stay, I spent a considerable amount of time at the bedside performing serial re-evaluations of the patient's hemodynamic and clinical status because of the recognized potential threat to life or limb in this condition. I then had a chance to review not only all of the available current laboratory and radiographic studies obtained today, but I also reviewed old records available to me at the time. Additionally, any ancillary information available including hall tender records were reviewed. Sequential vital signs were obtained. Critical Care time of 33 minutes was performed exclusive of billable procedures. Medical Decision Making Diagnostic Impression: Primary Impression: Dyspnea Qualified Codes: R06.00 - Dyspnea, unspecified Additional Impression: COPD exacerbation ER Course 48-year-old female presents with acute shortness of breath concerning for COPD exacerbation, patient given DuoNeb 6 rounds steroids magnesium, fluid bolus, antibiotics Patient will be admitted Multiple re-evaluations show continued improvement however patient is still short of breath. Patient is able to move air better, however still tachypneic. Patient admitted to Dr. Victoriano Mendenhall at [facility] Laboratory Tests Test 06/02/19 13:15 White Blood Count 11.2 K/UL (4.8-10.8) H Red Blood Count 5.06 M/UL (4.20-5.40) Hemoglobin 15.1 G/DL (12.0-16.0) Hematocrit 46.0 % (37.0-47.0) Mean Corpuscular Volume 91 FL (80-99) Mean Corpuscular Hemoglobin 29.9 PG (27.0-31.0) Mean Corpuscular Hemoglobin Concent 33.0 G/DL (32.0-36.0) Red Cell Distribution Width 11.4 % (11.6-14.8) L Platelet Count 246 K/UL (150-450) Mean Platelet Volume 7.6 FL (6.5-10.1) Neutrophils (%) (Auto) % (45.0-75.0) Lymphocytes (%) (Auto) % (20.0-45.0) Monocytes (%) (Auto) % (1.0-10.0) Eosinophils (%) (Auto) % (0.0-3.0) Basophils (%) (Auto) % (0.0-2.0) Differential Total Cells Counted 100 Neutrophils % (Manual) 94 % (45-75) H Lymphocytes % (Manual) 6 % (20-45) L Monocytes % (Manual) 0 % (1-10) L Eosinophils % (Manual) 0 % (0-3) Basophils % (Manual) 0 % (0-2) Band Neutrophils 0 % (0-8) Platelet Estimate Adequate Platelet Morphology Normal Red Blood Cell Morphology Normal Sodium Level 140 MMOL/L (136-145) Potassium Level 4.5 MMOL/L (3.5-5.1) Chloride Level 104 MMOL/L (98-107) Carbon Dioxide Level 25 MMOL/L (21-32) Anion Gap 11 mmol/L (5-15) Blood Urea Nitrogen 16 mg/dL (7-18) Creatinine 1.0 MG/DL (0.55-1.30) Estimate Glomerular Filtration Rate > 60 mL/min (>60) Glucose Level 275 MG/DL (74-106) H Calcium Level 9.9 MG/DL (8.5-10.1) Total Bilirubin 1.3 MG/DL (0.2-1.0) H Direct Bilirubin 0.3 MG/DL (0.0-0.3) Aspartate Amino Transferase (AST) 18 U/L (15-37) Alanine Aminotransferase (ALT) 38 U/L (12-78) Alkaline Phosphatase 83 U/L (46-116) Total Creatine Kinase 125 U/L (26-308) Creatine Kinase MB 2.3 NG/ML (0.0-3.6) Creatine Kinase MB Relative Index 1.8 Troponin I 0.000 ng/mL (0.000-0.056) Pro-B-Type Natriuretic Peptide 20 pg/mL (0-125) Total Protein 6.5 G/DL (6.4-8.2) Albumin 3.9 G/DL (3.4-5.0) Globulin 2.6 g/dL Albumin/Globulin Ratio 1.5 (1.0-2.7) Triglycerides Level 165 MG/DL (30-150) H Cholesterol Level 200 MG/DL (< 200) LDL Cholesterol 74 mg/dL (<100) HDL Cholesterol 100 MG/DL (40-60) H Cholesterol/HDL Ratio 2.0 (3.3-4.4) L EKG Diagnostic Results EKG Time: 13:06 EP Interpretation: sinus tachycardia, rate 106 qtc 448, no acute st elevations , normal axis Rhythm Strip Diag. Results Rhythm Strip Time: 13:31 EP Interpretation: yes Rate: 97 Rhythm: NSR, no PVC's, no ectopy Chest X-Ray Diagnostic Results Chest X-Ray Diagnostic Results : Chest X-Ray Ordered: Yes # of Views/Limited/Complete: 1 View Indication: Shortness of Breath EP Interpretation: Yes Interpretation: no consolidation, no effusion, no pneumothorax, no acute cardiopulmonary disease Impression: No acute disease Electronically Signed by: Dov Carmona MD Last Vital Signs Date Time Temp Pulse Resp B/P (MAP) Pulse Ox O2 Delivery O2 Flow Rate FiO2 06/02/19 12:53 98.2 110 22 147/82 (103) 93 Room Air [facility] Condition: Stable Dov Carmona MD Jun 02, 2019 13:08
[2019-06-02] MEDS: Ipratropium 0.02% Inh Soln 2.5ml UD HHN SCH ×2 (13:11→17:38)
[2019-06-02] MEDS: Albuterol ud Inhalation HHN SCH ×3 (13:11→17:37)
[2019-06-02] MEDS ORDERED: cefTRIAXone 1 GM in NS 55 ML IVPB ONE (13:15)
[2019-06-02] MEDS ORDERED: Ipratropium 0.02% Inh Soln 2.5ml UD HHN SCH (13:15)
[2019-06-02] MEDS ORDERED: Azithromycin 500 MG in NS 275 ML IV ONE (13:15)
[2019-06-02] MEDS ORDERED: Albuterol ud Inhalation HHN SCH (13:15)
--- NOTE | 2019-06-02 13:19 | NUR ---
ED Nurse Note: PER VERBAL ORDER FROM DR SIMMONS, INFUSE 1G MAGNESIUM SULFATE OVER 20 MINUTES.
[2019-06-02 13:39] LABS: HEMOGLOBIN 15.1 G/DL (12.0-16.0); MEAN CORPUSCULAR VOLUME 91 FL (80-99); PLATELET COUNT 246 K/UL (150-450); RED BLOOD COUNT 5.06 M/UL (4.20-5.40); RED CELL DISTRIBUTION WIDTH 11.4 % (11.6-14.8); WHITE BLOOD COUNT 11.2 K/UL (4.8-10.8)
[2019-06-02 14:06] LABS: ANION GAP 11 mmol/L (5-15); BLOOD UREA NITROGEN 16 mg/dL (7-18); CALCIUM 9.9 MG/DL (8.5-10.1); CARBON DIOXIDE 25 MMOL/L (21-32); CHLORIDE 104 MMOL/L (98-107); POTASSIUM 4.5 MMOL/L (3.5-5.1); SODIUM 140 MMOL/L (136-145)
[2019-06-02 14:11] LABS: ALANINE AMINOTRANSFERASE 38 U/L (12-78); ALBUMIN 3.9 G/DL (3.4-5.0); ALBUMIN/GLOBULIN RATIO 1.5 (1.0-2.7); ALKALINE PHOSPHATASE 83 U/L (46-116); ASPARTATE AMINO TRANSFERASE 18 U/L (15-37); BILIRUBIN,TOTAL 1.3 MG/DL (0.2-1.0); CHOLESTEROL 200 MG/DL (< 200); HDL CHOLESTEROL 100 MG/DL (40-60); TRIGLYCERIDES 165 MG/DL (30-150)
[2019-06-02] MEDS ORDERED: ARNUITY ELLIPT50 MCG IH (14:13)
[2019-06-02 14:17] VITALS: BP 138/82
[2019-06-02 14:34] LABS: BILIRUBIN,DIRECT 0.3 MG/DL (0.0-0.3); CKMB 2.3 NG/ML (0.0-3.6); CREATINE KINASE 125 U/L (26-308)
[2019-06-02 16:01] VITALS: BP 160/84
--- NOTE | 2019-06-02 16:15 | NUR ---
ED Nurse Note: [facility] CALLED FOR PT REPORT. REPORT GIVEN TO KEE HINOJOSA. RN READY TO ACCEPT PT AND IS AWARE OF [facility] ETA TO [facility] AT 1800.
--- NOTE | 2019-06-02 17:16 | Diagnostic Imaging Report ---
Indication: Dyspnea Technique: One view of the chest Comparison: 05/26/2019 Findings: Lungs and pleural spaces are clear. Heart size is normal. No significant change Impression: No acute process
[2019-06-02] MEDS ORDERED: Albuterol ud Inhalation HHN ONE (17:30)
--- NOTE | 2019-06-02 18:12 | NUR ---
ED Nurse Note: [facility] AT BEDSIDE. REPORT GIVEN TO EMS. PT TAKEN TO [facility] WITH ALL BELONGINGS ACCOMPANIED BY EMS. VSS.
[2019-06-02 18:13] VITALS: BP 136/83
== END 2019-06-02 18:16 | disposition short-term general hospital (02) ==
LOC: EMR 13:15
DX: J44.1 Chronic obstructive pulmonary disease with (acute) exacerbation (principal); E78.00 Pure hypercholesterolemia, unspecified; I10 Essential (primary) hypertension; Z87.891 Personal history of nicotine dependence
CPT/HCPCS: 36415; 71045; 80053; 80061; 82248; 82550; 82553; 83880; 84484; 85007; 85025; 93005; 94640; 94664; 96365; 96366; 96367; 96375; 99291; J0456; J0696; J1100; J7050; J7030

== ENCOUNTER 2019-06-28 16:36 | Emergency (ER) | payer MEDICARE, MEDICAID ==
[~2019-06-28] VITALS: Ht 172.7 cm; Wt 102.1 kg
[~2019-06-28 16:36] MED LIST changes: +ARNUITY ELLIPT50 MCG IH
--- NOTE | 2019-06-28 16:50 | NUR ---
ED Nurse Note: Patient walked into Ed from home c/o SOB for 2 days patient reports it got worse since this morning. patient is alert awake x4 ambulatory, reports hx of asthma and her albuterol hhn has not been helping her today. 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
[2019-06-28 16:51] VITALS: BP 160/95
[2019-06-28] MEDS ORDERED: Solu-MEDROL 125mg Inj IVP ONE (17:15)
[2019-06-28] MEDS: Albuterol ud Inhalation HHN SCH ×3 (17:21→17:23)
[2019-06-28] MEDS: Ipratropium 0.02% Inh Soln 2.5ml UD HHN SCH ×3 (17:21→17:23)
--- NOTE | 2019-06-28 18:37 | NUR ---
ER DISCHARGE NOTE: Patient is cleared to be discharged per ERMD DR WHITE, pt is aox4, on room air, with stable vital signs. pt was given dc and prescription instructions, pt was able to verbalize understanding, pt id band and iv site removed without complications. pt is able to ambulate with steady gait. pt took all belongings. patient reports she feels much better patient declined to take dc instruction papers though, stated "I don't need it."
[2019-06-28 18:38] VITALS: BP 160/95
--- NOTE | 2019-06-28 21:50 | Emergency Room Report ---
History of Present Illness General Chief Complaint: Dyspnea/Respdistress Source: Patient Present Illness HPI 48 -year-old female presents ED for evaluation. Complaining of shortness of breath for the last 2 days. History of asthma. States that she used her inhaler without significant improvement. States she is also been taking prednisone recently. Denies fevers or chills. Denies cough. Denies chest pain. Denies sick contacts or recent travel. No other aggravating relieving factors. Denies any other associated symptoms Allergies: Coded Allergies: No Known Allergies (Verified , 08/28/07) Patient History Past Medical History: HTN, asthma, COPD Pertinent Family History: none Social History: Denies: smoking, alcohol use, drug use Last Menstrual Period: MENOPAUSE Now: No Immunizations: UTD Reviewed Nursing Documentation: PMH: Agreed; PSxH: Agreed Nursing Documentation-PMH Past Medical History: No History, Except For Hx Cardiac Problems: Yes - high chol Hx Hypertension: Yes Hx Asthma: Yes Hx COPD: Yes Hx Diabetes: No Hx Cancer: No Hx Gastrointestinal Problems: No Hx Dialysis: No Hx Neurological Problems: No Hx Cerebrovascular Accident: No Hx Seizures: No Hx Vertigo: Yes Review of Systems All Other Systems: negative except mentioned in HPI Physical Exam Vital Signs Date Time Temp Pulse Resp B/P (MAP) Pulse Ox O2 Delivery O2 Flow Rate FiO2 06/28/19 16:43 98.2 104 22 160/95 (116) 92 Room Air 06/28/19 17:21 21 Sp02 EP Interpretation: reviewed, normal General Appearance: no apparent distress, alert, GCS 15, non-toxic Head: normocephalic Eyes: bilateral eye normal inspection, bilateral eye PERRL ENT: normal ENT inspection Neck: normal inspection Respiratory: decreased breath sounds, wheezing Cardiovascular #1: regular rate, rhythm, no edema Gastrointestinal: normal inspection Rectal: deferred Genitourinary: no CVA tenderness Musculoskeletal: normal inspection Neurologic: alert, oriented x3, responsive, motor strength/tone normal, sensory intact, speech normal Psychiatric: normal inspection Skin: no rash Lymphatic: normal inspection Medical Decision Making Diagnostic Impression: Primary Impression: asthma exacerbation ER Course Hospital Course 48-year-old female presents to ED complaining of SOB, wheezing. h/o asthma Differential diagnoses include: URI, bronchitis, asthma/COPD, pneumonia Clinical course Patient placed on stretcher. After initial history, physical exam reveals a middle aged female in no acute distress. Bilateral TM unremarkable. No pharyngeal erythema. No tonsillar exudates. No lymphadenopathy. Mild wheezing noted on exam, no signs of respiratory distress or retractions. Patient given solumedro and albuterol/atrovent treatment in ED with symptoms improved. I discussed findings with patient. Will discharge to home. States she has her prednisone at home as well as inhaler. States she has a PMD. Safe for discharge for close outpatient follow-up Diagnosis - asthma exacerbation Stable and discharged home. Instructed to followup with PMD. Return to ED if symptoms recur or worsen Last Vital Signs Date Time Temp Pulse Resp B/P (MAP) Pulse Ox O2 Delivery O2 Flow Rate FiO2 06/28/19 18:38 97 19 Room Air 21 06/28/19 18:38 98.2 160/95 98 Status: improved Disposition: HOME, SELF-CARE Condition: Stable Referrals: NON PHYSICIAN (PCP) Patient Instructions: Asthma, Adult, [id number] Blu Gonsales MD Jun 28, 2019 21:49
== END 2019-06-28 18:38 | disposition home or self-care (01) ==
LOC: EMR 17:00
DX: J45.901 Unspecified asthma with (acute) exacerbation (principal); I10 Essential (primary) hypertension; J44.9 Chronic obstructive pulmonary disease, unspecified; E78.00 Pure hypercholesterolemia, unspecified
CPT/HCPCS: 94640; 94664; 96374; 99284; J2930

== ENCOUNTER 2019-08-08 11:13 | Emergency (ER) | payer MEDICARE, MEDICAID ==
[~2019-08-08] VITALS: Ht 172.7 cm; Wt 99.8 kg
[2019-08-08] MEDS ORDERED: IBUPROFEN600 MG ORAL (11:42)
[2019-08-08] MEDS ORDERED: LIDODERM700 M1 TOPIC (11:42)
[2019-08-08] MEDS ORDERED: ROBAXIN-750750 MG PO (11:42)
[2019-08-08] MEDS ORDERED: ACETAMINOPHEN325 M1 ORAL (11:42)
--- NOTE | 2019-08-08 11:45 | Emergency Room Report ---
History of Present Illness General Chief Complaint: Pain Source: Patient Present Illness HPI Disclaimer: Please note that this report is being documented using DRAGON technology. This can lead to erroneous entry secondary to incorrect interpretation by the dictating instrument. HPI: 48-year-old female presents for evaluation of back pain. Symptoms have been going on for approximately 2 weeks. Notes right sided lower back pain that sometimes radiates down the right gluteus. Denies any lower extremity weakness, paresthesias, urinary retention, fever, chills or midline back pain. There was no injury or trauma reported. She had a URI 2 weeks ago and had diffuse myalgias since then which have been intermittent but the back pain is been more or less constant. Has been using ibuprofen at home without significant relief. Pain is worse while getting up from a seated position. Notes significant stiffness. Allergies: Coded Allergies: No Known Allergies (Verified , 08/08/19) Patient History Last Menstrual Period: MENOPAUSE Nursing Documentation-[facility] Past Medical History: No History, Except For Hx Cardiac Problems: Yes - high chol Hx Hypertension: Yes Hx Asthma: Yes Hx COPD: Yes Hx Diabetes: No Hx Cancer: No Hx Gastrointestinal Problems: No Hx Dialysis: No Hx Neurological Problems: No Hx Cerebrovascular Accident: No Hx Seizures: No Hx Vertigo: Yes Review of Systems All Other Systems: negative except mentioned in HPI Physical Exam Vital Signs Date Time Temp Pulse Resp B/P (MAP) Pulse Ox O2 Delivery O2 Flow Rate FiO2 08/08/19 11:19 98.6 97 18 117/76 (90) 92 Room Air General: Awake and alert, no acute distress HEENT: NC/AT. EOMI. Resp: Normal work of breathing Skin: Intact. No abrasions, laceration or rash over the exposed skin MSK: Normal tone and bulk. Moving all extremities. No obvious deformity. There is no midline tenderness in the cervical, thoracic or lumbosacral spine. There is no significant paraspinal tenderness. There is tenderness over the right gluteus extending laterally on the right side. No obvious trigger point. No deformity. Pelvis is stable. Ambulating with a steady gait. Neuro: Awake and alert. Mentating appropriately. Sensation is intact over the dermatomes of lower extremities. No saddle anesthesia. Medical Decision Making Diagnostic Impression: Primary Impression: Back spasm ER Course 48-year-old female presents for evaluation of 2 weeks atraumatic right-sided back pain. Peers to be a muscle cramp, spasm or ligamentous injury. Will treat conservatively as an outpatient with continued NSAIDs, add Robaxin and lidocaine patches. No red flag symptoms of cauda equina or spinal epidural abscess. There was no trauma. Do not believe she requires emergent labs or imaging at this time. She will follow-up with orthopedics clinic and her PMD. Discussed reasons to return to the emergency department. She understands and agrees with this treatment plan. Last Vital Signs Date Time Temp Pulse Resp B/P (MAP) Pulse Ox O2 Delivery O2 Flow Rate FiO2 08/08/19 11:19 98.6 97 18 117/76 (90) 92 Room Air Disposition: HOME, SELF-CARE Condition: Stable Scripts Lidocaine Patch* (Lidoderm Patch*) 1 Each Adh..patch 1 PATCH TOPIC DAILY, #7 PATCH 0 Refills Patch(es) may remain in place for up to 12 hours in any 24-hour period. Prov: Mehdi Teixeira MD 08/08/19 Methocarbamol* (ROBAXIN-750*) 750 Mg Tablet 750 MG PO QID, #28 TAB 0 Refills Prov: Mehdi Teixeira MD 08/08/19 Acetaminophen* (ACETAMINOPHEN 325MG TABLET*) 325 Mg Tablet 650 MG ORAL Q6H PRN for For Pain for 7 Days, #40 TAB Prov: Mehdi Teixeira MD 08/08/19 Ibuprofen* (MOTRIN*) 600 Mg Tablet 600 MG ORAL Q8H PRN for For Pain, #30 TAB 0 Refills Prov: Mehdi Teixeira MD 08/08/19 Referrals: [facility] Open 24 hour /7 days a week by Appointment Only [address] [facility] [id number] Patient Instructions: Cryotherapy, [id number] Additional Instructions: Your value today for back pain. Likely this is a muscle spasm we will treat with muscle relaxers, lidocaine patches and continue Tylenol and Motrin. Follow -up with the orthopedic clinic if symptoms continue. Follow-up with your primary doctor as well. Return with any new or worsening symptoms Mehdi Teixeira MD Aug 08, 2019 11:45
[2019-08-08 12:08] VITALS: BP 117/76
[2019-08-08 12:09] VITALS: BP 117/76
== END 2019-08-08 12:09 | disposition home or self-care (01) ==
LOC: EMR 11:48
DX: M62.830 Muscle spasm of back (principal); I10 Essential (primary) hypertension; E78.00 Pure hypercholesterolemia, unspecified; J44.9 Chronic obstructive pulmonary disease, unspecified; J45.909 Unspecified asthma, uncomplicated
CPT/HCPCS: 99282

== ENCOUNTER 2019-08-15 12:46 | Emergency (ER) | payer MEDICARE, MEDICAID ==
[~2019-08-15] VITALS: Ht 172.7 cm; Wt 99.8 kg
[~2019-08-15 12:46] MED LIST changes: +ACETAMINOPHEN325 M1 ORAL; +LIDODERM700 M1 TOPIC; +ROBAXIN-750750 MG PO
[2019-08-15] MEDS ORDERED: Albuterol ud Inhalation HHN ONE (13:15)
[2019-08-15] MEDS ORDERED: Ipratropium 0.02% Inh Soln 2.5ml UD HHN ONE (13:15)
[2019-08-15] MEDS ORDERED: HYDROcodone/Acetamin 5/325 tab ORAL ONE (13:15)
[2019-08-15] MEDS ORDERED: Ketorolac 60mg Inj IM ONE (13:15)
--- NOTE | 2019-08-15 13:22 | Emergency Room Report ---
History of Present Illness General Chief Complaint: Asthma Source: Patient Present Illness HPI Patient presents initially with complaints of asthma and shortness of breath Ongoing for the past several days Denies any vomiting or diarrhea denies any chest pain Patient however also reports that she is having increased right lower back pain with radiation to her inguinal area and right upper leg Denies any fall or trauma Patient reports that she was here recently and told to return if symptoms do not improve Denies any focal weakness denies any loss of control of bowel or urination Allergies: Coded Allergies: No Known Allergies (Verified , 08/08/19) Patient History Past Medical History: see triage record Reviewed Nursing Documentation: PMH: Agreed; PSxH: Agreed Nursing Documentation-PMH Hx Cardiac Problems: Yes - high chol Hx Hypertension: Yes Hx Asthma: Yes Hx COPD: Yes Hx Diabetes: No Hx Cancer: No Hx Gastrointestinal Problems: No Hx Dialysis: No Hx Neurological Problems: No Hx Cerebrovascular Accident: No Hx Seizures: No Hx Vertigo: Yes Review of Systems All Other Systems: negative except mentioned in HPI Physical Exam Vital Signs Date Time Temp Pulse Resp B/P (MAP) Pulse Ox O2 Delivery O2 Flow Rate FiO2 08/15/19 12:57 98.4 88 20 160/80 (106) 90 Room Air Sp02 EP Interpretation: reviewed, abnormal - 90% Percent which is low after breathing treatment and evaluation saturating at 95% which is normal Head: normocephalic, atraumatic Eyes: bilateral eye PERRL ENT: hearing grossly normal, EOM grossly intact Neck: supple Respiratory: no retraction, no accessory muscle use, wheezing - Bilaterally Cardiovascular #1: regular rate, rhythm Gastrointestinal: non tender, soft Genitourinary: no CVA tenderness Musculoskeletal: other - Tender on palpation of the right posterior superior iliac crest region otherwise moving extremities equally sensory intact Neurologic: alert, oriented x3 Psychiatric: normal inspection Skin: no rash Lymphatic: normal inspection Medical Decision Making Diagnostic Impression: Primary Impression: Asthma attack Additional Impressions: Low back pain Sciatica ER Course Given the patient's history and presentation breathing treatments are initiated upon arrival patient provided with steroids she is also requesting a CT imaging of her abdomen pelvic area I did notify her that she has had 2 Previously here which have not shown any abnormal results I discussed my concerns about Radiation and possible negative consequences Patient reports that she is aware that however she has not had pain like this before and needs to have the imaging CT imaging does not reveal any acute process patient has done significantly better And at this time stable for close outpatient follow-up Labs Test 08/15/19 13:20 Urine Color Yellow Urine Appearance Clear Urine pH 5 (4.5-8.0) Urine Specific [place] 1.025 (1.005-1.035) Urine Protein Negative (NEGATIVE) Urine Glucose (UA) Negative (NEGATIVE) Urine Ketones Negative (NEGATIVE) Urine Blood 1+ (NEGATIVE) Urine Nitrite Negative (NEGATIVE) Urine Bilirubin Negative (NEGATIVE) Urine Urobilinogen Normal MG/DL (0.0-1.0) Urine Leukocyte Esterase 1+ (NEGATIVE) Urine RBC 0-2 /HPF (0 - 2) Urine WBC 0-2 /HPF (0 - 2) Urine Squamous Epithelial Cells Few /LPF (NONE/OCC) Urine Bacteria Occasional /HPF (NONE) Urine Mucus Few /LPF (NONE/OCC) Urine HCG, Qualitative Negative (NEGATIVE) CT/MRI/US Diagnostic Results CT/MRI/US Diagnostic Results : Impression CT abdomen pelvisIMPRESSION: No acute findings. Diverticulosis of the colon mild in degree. Accessory splenic nodules. Contracted gallbladder not well evaluated. Last Vital Signs Date Time Temp Pulse Resp B/P (MAP) Pulse Ox O2 Delivery O2 Flow Rate FiO2 08/15/19 12:57 98.4 88 20 160/80 (106) 90 Room Air Status: improved Disposition: HOME, SELF-CARE Condition: Improved Scripts Hydrocodone Bit/Acetaminophen 5-325* (NORCO 5-325*) 1 Each Tablet 1 TAB ORAL Q6H PRN for For Pain, #10 TAB 0 Refills Prov: Popeye Douglas DO 08/15/19 Albuterol Sulfate* (ALBUTEROL SULFATE MDI*) 8.5 Gm Hfa.aer.ad 2 PUFF INH Q6H for 5 Days, #1 INH 0 Refills Prov: Popeye Douglas DO 08/15/19 Additional Instructions: Patient is provided with the discharge instructions notified to follow up with primary doctor in the next 2-3 days otherwise return to the er with any worsening symptoms. Please note that this report is being documented using Prezma technology. This can lead to erroneous entry secondary to incorrect interpretation by the dictating instrument. Popeye Douglas DO Aug 15, 2019 13:22
[2019-08-15] MEDS ORDERED: Solu-MEDROL 125mg Inj IM ONE (13:30)
[2019-08-15 13:40] LABS: APPEARANCE,URINE CLEAR; BILIRUBIN, URINE NEGATIVE (NEGATIVE); GLUCOSE, URINE (UA) NEGATIVE (NEGATIVE); KETONES,URINE NEGATIVE (NEGATIVE); LEUKOCYTE ESTERASE ,URINE 1+ (NEGATIVE); NITRITE,URINE NEGATIVE (NEGATIVE); PH,URINE 5 (4.5-8.0); PROTEIN,URINE NEGATIVE (NEGATIVE); UROBILINOGEN,URINE NORMAL MG/DL (0.0-1.0)
[2019-08-15 13:42] LABS: COLOR,URINE YELLOW
[2019-08-15 13:54] VITALS: BP 132/72
--- NOTE | 2019-08-15 14:07 | Diagnostic Imaging Report ---
INDICATION: Abdominal pain TECHNIQUE: Continuous helical transaxial imaging of the abdomen and pelvis was obtained from the lung bases to the pubic symphysis. No intravenous contrast was administered. Coronal 2-D reformats were also obtained. Automatic Exposure Control was utilized. Total Dose length Product (DLP): 21.[address] Dose Index Volume (CTDIvol): 34.9 mGy Comparison: 05/01/2019 FINDINGS: Lungs: The visualized lung bases are clear. Liver: Unremarkable Gallbladder/biliary system: The gallbladder is contracted. No obvious gallstones or biliary ductal dilatation identified.. Spleen: Accessory splenic nodules are seen adjacent to the spleen. Pancreas: Unremarkable Kidneys: No definite stone or hydronephrosis are identified.. Adrenal glands: Unremarkable Bowel: The appendix is normal. Diverticula demonstrated in the sigmoid colon. No evidence of acute diverticulitis. There is no evidence of bowel obstruction. Bladder: Unremarkable Aorta/IVC: There is mild calcification of aorta and iliac arteries. Peritoneum: There is no free fluid. Bones: There is narrowing of intervertebral discs and accompanying endplate osteophyte formation. Hypertrophied facet joints also demonstrated. IMPRESSION: No acute findings. Diverticulosis of the colon mild in degree. Accessory splenic nodules. Contracted gallbladder not well evaluated. Note: Evaluation of solid organs is limited on non contrast imaging. The CT scanner at [facility] is accredited by the [employer] and the scans are performed using dose optimization techniques as appropriate to a performed exam including Automatic Exposure control.
[2019-08-15] MEDS ORDERED: NORCO 5-325 TA1 EACH ORAL (14:10)
[2019-08-15] MEDS ORDERED: ALBUTEROL SULF8.5 GM INH (14:10)
[2019-08-15 14:18] VITALS: BP 132/67
== END 2019-08-15 14:18 | disposition home or self-care (01) ==
LOC: EMR 13:30
DX: J45.998 Other asthma (principal); M54.5 Low back pain; M54.30 Sciatica, unspecified side; I10 Essential (primary) hypertension; E78.00 Pure hypercholesterolemia, unspecified; J44.9 Chronic obstructive pulmonary disease, unspecified
CPT/HCPCS: 74176; 81003; 81025; 96372; 99284; J2930; J7512

== ENCOUNTER 2019-08-30 09:18 | Emergency (ER) | payer MEDICARE, MEDICAID ==
[~2019-08-30] VITALS: Ht 172.7 cm; Wt 99.8 kg
[2019-08-30 09:22] VITALS: BP 124/68
--- NOTE | 2019-08-30 09:25 | NUR ---
ED Nurse Note: Pt walked in from home c/o shortness of breath and cough since this morning. Pt has hx of asthma. Respirations even and unlabored, but patient has wheezing. Vital signs stable as documented.
[2019-08-30] MEDS ORDERED: Ipratropium 0.02% Inh Soln 2.5ml UD HHN ONE (09:30)
[2019-08-30] MEDS ORDERED: Albuterol ud Inhalation HHN ONE (09:30)
--- NOTE | 2019-08-30 09:36 | NUR ---
ED Nurse Note: RT called about breathing tx.
[2019-08-30] MEDS ORDERED: Solu-MEDROL 125mg Inj IM ONE (10:15)
--- NOTE | 2019-08-30 10:24 | NUR ---
ED Nurse Note: Pt refusing IM solu-medrol and only wants IV. Made EDMD aware.
[2019-08-30] MEDS ORDERED: MEDROL DOSEPAK4 MG ORAL (10:42)
[2019-08-30] MEDS ORDERED: ALBUTEROL SULF8.5 GM INH (10:42)
[2019-08-30] MEDS ORDERED: Solu-MEDROL 125mg Inj IVP ONE (10:45)
[2019-08-30 10:52] VITALS: BP 124/68
--- NOTE | 2019-08-30 10:58 | Emergency Room Report ---
History of Present Illness General Chief Complaint: Asthma Source: Patient Present Illness HPI Patient presents with complaints of asthma exacerbation Reports that she had taken her inhaler at home but not improving Denies any headache denies any chest pain She does have a shortness of breath sensation with the asthma flare Denies any recent travel Denies any abdominal pain Denies any fevers or chills Allergies: Coded Allergies: No Known Allergies (Verified , 08/08/19) Patient History Past Medical History: see triage record Last Menstrual Period: 2011 hysterectomy Reviewed Nursing Documentation: PMH: Agreed; PSxH: Agreed Nursing Documentation-PMH Past Medical History: No History, Except For Hx Hypertension: Yes Hx Asthma: Yes Hx COPD: Yes Hx Diabetes: No Hx Cancer: No Hx Gastrointestinal Problems: No Hx Dialysis: No Hx Neurological Problems: No Hx Cerebrovascular Accident: No Hx Seizures: No Hx Vertigo: Yes Review of Systems All Other Systems: negative except mentioned in HPI Physical Exam Vital Signs Date Time Temp Pulse Resp B/P (MAP) Pulse Ox O2 Delivery O2 Flow Rate FiO2 08/30/19 09:19 98.1 104 16 124/68 (86) 95 08/30/19 09:22 Room Air 08/30/19 09:52 21 Sp02 EP Interpretation: reviewed, normal General Appearance: no apparent distress Head: normocephalic, atraumatic Eyes: bilateral eye PERRL, bilateral eye EOMI ENT: hearing grossly normal, EOM grossly intact Neck: supple Respiratory: no respiratory distress, no retraction, no accessory muscle use, wheezing - Bilaterally Cardiovascular #1: regular rate, rhythm Gastrointestinal: non tender, soft Musculoskeletal: normal inspection Neurologic: alert, oriented x3 Skin: no rash Lymphatic: no adenopathy Medical Decision Making Diagnostic Impression: Primary Impression: Asthma Additional Impression: Asthma attack ER Course Multiple differentials and consideration including but not limited to URI, pneumonia, asthma exacerbation Patient has had several visits to the emergency room over the past 6 months, reports that she is on disability secondary to her asthma Patient provided with breathing treatment and does sound significantly improved however at this time requesting Solu-Medrol Initially IM injection was ordered however the patient requesting IV We discussed possible phlebitis and other side effects of multiple IV placement however patient adamantly requests IV placement Also initially requesting chest x-ray Patient has had multiple x-rays and CAT scan of the abdomen pelvis recently and I did not feel met criteria for emergency x-ray IV Solu-Medrol was provided secondary to multiple request, and patient is encouraged to have improved outpatient follow-up Discussing possible side effects of ER visits and multiple steroid prescriptions Last Vital Signs Date Time Temp Pulse Resp B/P (MAP) Pulse Ox O2 Delivery O2 Flow Rate FiO2 08/30/19 10:13 102 21 97 Room Air 21 101 23 95 08/30/19 09:22 98.1 124/68 Status: improved Disposition: HOME, SELF-CARE Condition: Improved Scripts Methylprednisolone (Methylprednisolone*) 4MG Dspk 4 MG ORAL DIRECTED for 6 Days, #21 EA 0 Refills Day 1: Two tablets before breakfast, one after lunch, one after dinner, and two at bedtime. If started late in the day, take all six tablets at once or divide into two or three doses, unless otherwise directed by prescriber. Day 2: One tablet before breakfast, one after lunch, one after dinner, and two at bedtime Day 3: One tablet before breakfast, one after lunch, one after dinner, and one at bedtime Day 4: One tablet before breakfast, one after lunch, and one at bedtime Day 5: One tablet before breakfast and one at bedtime Day 6: One tablet before breakfast Prov: Popeye Douglas DO 08/30/19 Albuterol Sulfate* (ALBUTEROL SULFATE MDI*) 8.5 Gm Hfa.aer.ad 2 PUFF INH Q6H, #1 EA 0 Refills Prov: Popeye Douglas DO 08/30/19 Referrals: NON PHYSICIAN (PCP) [facility] Patient Instructions: Asthma, Adult Additional Instructions: Please note that it has been requested for you to set up appropriate outpatient follow-up regarding your underlying asthma. The ER has had several visits, raising concern for appropriate outpatient follow-up. Multiple refills of steroid medication can lead to medical side effects and negative outcomes. 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 Please note that this report is being documented using [employer] technology. This can lead to erroneous entry secondary to incorrect interpretation by the dictating instrument. Popeye Douglas DO Aug 30, 2019 10:58
== END 2019-08-30 10:52 | disposition home or self-care (01) ==
LOC: EMR 10:18
DX: J45.901 Unspecified asthma with (acute) exacerbation (principal); J44.9 Chronic obstructive pulmonary disease, unspecified; I10 Essential (primary) hypertension; Z90.710 Acquired absence of both cervix and uterus
CPT/HCPCS: 96372; 96374; 99284; J2930